=== PATIENT | female | born 1935 | race Caucasian/White ===

== ENCOUNTER 2018-01-18 09:50 | Day surgery (SDC) | payer OTHER, MEDICARE ==
[2018-01-17 11:48] VITALS: BMI 21.4
--- NOTE | 2018-01-17 16:55 | HP ---
- Patient Scheduled date of Surgery: 01/18/18 Scheduled Surgical Procedure: Phacoemulsification and cataract extraction with PCIOL Affected Eye: Left Chief Complaint (Indication for surgery): Decreased vision affecting ADLs - Ocular History Other Eye History: Other (none) Eye Medications: vigamox 0/3 Previous Eye Surgery: none - Medical History Illnesses: Other (RA) Current Medications: Ambulatory Orders Unobtainable 01/17/18 Methotrexate ibuprofen Allergies/Adverse Reactions: Allergies Allergy/AdvReac Type Severity Reaction Status Date / Time No Known Allergies Allergy Verified 01/17/18 11:48 Ocular Examination - Best Corrected Visual Acuity Distance: Right eye: 20/60 Distance: Left eye: 20/70 - External/Slit Lamp Examination Abnormalities: arcus senilis - Intraocular Pressure Intraocular Pressure - Right eye: 14 Intraocular Pressure-Left eye: 14 - Lens Lens: 3-4 + NS - Vitreous/Retina Vitreous/Retina: c:d 0.1 mottled macula, v wnl, p drusen ou - Special Examination M - Right eye: -1.00 -1.50 x 090 M - Left eye: plano -3.25 x 090 K - Right eye: 44.75/46.25 x 010 K - Left eye: 44.75/46 x 165 AL - Right eye: 22.56 AL - Left eye: 22.67 IOL bag: +21.5 d AUOOTO IOL sulcus: +20.5 MN60 AC IOL AC: +17.5 MTA 4uo - Impression Impression: Cataract Left Eye - Plan Plan: Phacoemulsification and cataract extraction - IOL Left eye Post-hospital care will be provided in office on: 01/19/18
[~2018-01-18 09:50] MED LIST: BSS (NA/CA/MG/K) BALANCED SALT SOLUTION OPHTH SOLN 15 ML BOTTLE OS ONE; CHONDROITIN SU A/HYALUR SOD 1 KIT IO ONE; EPINEPHrine/PF 1 MG/1 ML (1:1,000) AMPULE SQ ONE; LIDOCAINE HCL 1% PRESERVATIVE FREE - 30ML VIAL IO ONE; LIDOCAINE HCL 2% JELLY (5 ML/TUBE) TP ONE; POVIDONE-IODINE 5% OPHTHALMIC PREP 30 ML SOLUTION OS ONE; TOBRAMYCIN 0.3% OPHTH OINT 3.5 GM OS ONE
--- NOTE | 2018-01-18 09:52 | HP ---
History & Physical Update - History History: No Change - Physical Physical: No Change - Assessment Assessment: No Change - Plan Plan: No Change (H and p reviewed from 01/11/[address] Mckeon, no change)
[2018-01-18] MEDS: PHENYLEPHRINE 2.5% OPHTH SOLN 15 ML BOTTLE OP SCH ×3 (10:10→10:45)
[2018-01-18] MEDS: CIPROFLOXACIN HCL 0.3% OPHTH 2.5ML BOTTLE OP SCH ×3 (10:10→10:45)
[2018-01-18] MEDS: TROPICAMIDE 1% OPHTH SOLN 15 ML BOTTLE OP SCH ×3 (10:10→10:46)
[2018-01-18] MEDS ORDERED: PHENYLEPHRINE 2.5% OPHTH SOLN 15 ML BOTTLE ONE (10:15)
[2018-01-18] MEDS ORDERED: TROPICAMIDE 1% OPHTH SOLN 15 ML BOTTLE ONE (10:15)
[2018-01-18] MEDS ORDERED: CIPROFLOXACIN HCL 0.3% OPHTH 2.5ML BOTTLE ONE (10:15)
[2018-01-18] MEDS ORDERED: KETOROLAC TROMETHAMINE 0.5% EYE DROP 1 DROP DROPS ONE (10:15)
[2018-01-18 10:27] VITALS: TEMP 97.5
[2018-01-18] MEDS ORDERED: TOBRAMYCIN/DEXAMETHASONE OPHTH. OINTMENT 1 TUBE ONE (10:38)
[2018-01-18] MEDS: KETOROLAC TROMETHAMINE 0.5% EYE DROP 1 DROP DROPS OP SCH ×2 (10:40→10:45)
[2018-01-18] MEDS ORDERED: LIDOCAINE HCL 2% JELLY (5 ML/TUBE) TP ONE (11:00)
[2018-01-18] MEDS ORDERED: MIDAZOLAM HCL 2 MG/2 ML SINGLE DOSE VIAL ONE (11:00)
[2018-01-18] MEDS ORDERED: POVIDONE-IODINE 5% OPHTHALMIC PREP 30 ML SOLUTION OS ONE (11:07)
[2018-01-18] MEDS ORDERED: BSS (NA/CA/MG/K) BALANCED SALT SOLUTION OPHTH SOLN 15 ML BOTTLE OS ONE (11:11)
[2018-01-18] MEDS ORDERED: LIDOCAINE HCL 1% PRESERVATIVE FREE - 30ML VIAL IO ONE (11:16)
[2018-01-18] MEDS ORDERED: CHONDROITIN SU A/HYALUR SOD 1 KIT IO ONE ×2 (11:18→11:28)
[2018-01-18] MEDS ORDERED: EPINEPHrine/PF 1 MG/1 ML (1:1,000) AMPULE SQ ONE ×2 (11:19)
[2018-01-18] MEDS ORDERED: BSS (NA/CA/MG/K) BALANCED SALT SOLUTION OPHTH SOLN 15 ML BOTTLE IO ONE ×2 (11:29→11:53)
[2018-01-18] MEDS ORDERED: CHONDROITIN SU A/HYALUR SOD 1 KIT ONE (11:32)
[2018-01-18] MEDS ORDERED: ACETYLCHOLINE 1:100 INTRA-OCUL 20 MG/2 ML KIT ONE (11:55)
[2018-01-18] MEDS ORDERED: ACETYLCHOLINE 1:100 INTRA-OCUL 20 MG/2 ML KIT IO ONE (11:57)
[2018-01-18] MEDS ORDERED: TOBRAMYCIN 0.3% OPHTH OINT 3.5 GM OS ONE (12:04)
--- NOTE | 2018-01-18 12:13 | OP ---
Ophthalmology Operative Note Pre-Operative Diagnosis: Cataract Affected Eye: Left Operation: Phacoemulsification and cataract extraction with PCIOL (post op mature cataract) Findings: Mature cataract left eye Director Of Vocational Training: None Anesthesiologist: Nano Matamoros Anesthesia: Topical Specimens Removed: none Estimated blood loss: <1 cc Drains & Tubes with Location: none Operative Report Dictated: Yes
[2018-01-18 13:41] VITALS: BP 148/90; PULSE 82
--- NOTE | 2018-01-18 15:26 | OP ---
DATE OF OPERATION: 01/18/2018 PREOPERATIVE DIAGNOSIS: Cataract, left eye. POSTOPERATIVE DIAGNOSIS: Mature cataract, left eye. PROCEDURE: Phacoemulsification and cataract extraction with insertion of posterior chamber intraocular lens, left eye. SURGEON: Mayela Robledo MD RESEARCH ASSISTANT MEMBER: None. ANESTHESIA: Topical. ANESTHESIOLOGIST: Nano Matamoros MD OPERATIVE PROCEDURE: The patient received 2% lidocaine gel and then was gently sedated and prepped and draped in the usual sterile fashion so as to expose only the left eye. Ophthalmic Betadine was instilled into the inferior fornix. The lashes were taped out of the surgical field. An eyelid speculum was placed into the left eye. A paracentesis was made in inferior clear cornea at the limbus. Then 0.5 mL of non-preserved lidocaine 1% was injected into the anterior chamber. Viscoelastic material was instilled into the anterior chamber via the paracentesis. A 2.4-mm keratome was then used to make the main incision in temporal clear cornea at the limbus. A continuous curvilinear capsulorrhexis was performed using a cystotome and Utrata forceps. Hydrodissection of the lens cortex was performed using BSS on a cannula until the nucleus was freely rotating. The phacoemulsification tip was inserted via the main wound and used to sculpt 2 perpendicular grooves in the lens nucleus. Viscoat was injected into the groove. The nucleus cracker was used to crack the lens into 4 quadrants. Each quadrant was lifted out of the capsule into the iris plane and individually phacoemulsified. The remaining cortical material was then aspirated using the irrigation and aspiration port. The capsular bag was inflated using ProVisc and a preloaded AcrySof lens model [id number], power +21.5 diopters, was injected into the capsular bag. It was centered using a Sinskey hook. The residual viscoelastic material was removed from the anterior chamber using irrigation and aspiration. The wound edges were hydrated using BSS. However, the lens appeared to be shallowing, therefore, 1 mL of Miochol was placed in the eye to constrict the pupil, and the wound edges were again hydrated. The wound was tested for leakage. It was found to be watertight. TobraDex ointment was placed on the eye and the speculum was removed from the eye. A sterile dressing and shield were placed over the eye and the patient was transferred to the recovery room in stable condition, told to follow up in 1 day. MAYELA ROBLEDO M.D. [id number]
[2018-01-18] MEDS ORDERED: ACETAMINOPHEN 325 MG TABLET (FP) PO PRN (16:18)
== END 2018-01-18 13:15 | disposition home or self-care (01) ==
LOC: JASU-SURG 09:50
PROVIDERS: ATTEND Ophthalmology
PROC: 08RK3JZ Replacement of Left Lens with Synthetic Substitute, Percutaneous Approach (ICD-10-PCS; principal; 2018-01-18 11:00)
DX: H26.9 Unspecified cataract (principal)

== ENCOUNTER 2018-07-05 05:18 | Day surgery (SDC) | payer OTHER, MEDICARE ==
--- NOTE | 2018-07-04 15:28 | HP ---
- Patient Scheduled date of Surgery: 07/05/18 Scheduled Surgical Procedure: Phacoemulsification and cataract extraction with PCIOL Affected Eye: Right Chief Complaint (Indication for surgery): Decreased vision affecting ADLs - Ocular History Other Eye History: Other (none) Eye Medications: vigamox Previous Eye Surgery: s/p ce/pciol OS - Medical History Illnesses: Other (RA , osteoporosis) Current Medications: Ambulatory Orders Folic Acid 1 mg PO DAILY 01/18/18 Methotrexate [Mexate -] 12.5 mg PO Q7D 01/18/18 Infliximab [Remicade 100MG Vial] 100 mg IV MONTHLY 07/03/18 Allergies/Adverse Reactions: Allergies Allergy/AdvReac Type Severity Reaction Status Date / Time No Known Allergies Allergy Verified 07/03/18 16:32 Ocular Examination - Best Corrected Visual Acuity Distance: Right eye: 20/60 Distance: Left eye: 20/40 - External/Slit Lamp Examination Abnormalities: none - Intraocular Pressure Intraocular Pressure - Right eye: 14 Intraocular Pressure-Left eye: 14 - Lens Lens: 3-4 + NS - Vitreous/Retina Vitreous/Retina: c:d 0.1 m mottled, p drusen , v wnl - Special Examination M - Right eye: -1.00-1.50 x 090 M - Left eye: +0.50-2.00 x 075 K - Right eye: 44.50/45.75 x 005 K - Left eye: 44.50/46.25 x 161 AL - Right eye: 22.56 AL - Left eye: 22.67 IOL ba.0 IOL sulcus: 21.0 IOL AC: 18.5 - Impression Impression: Cataract Right Eye - Plan Plan: Phacoemulsification and cataract extraction - IOL Right eye Post-hospital care will be provided in office on: 07/06/18
[~2018-07-05 05:18] MED LIST changes: +ACETAMINOPHEN 325 MG TABLET (FP) PO PRN; -BSS (NA/CA/MG/K) BALANCED SALT SOLUTION OPHTH SOLN 15 ML BOTTLE OS ONE; -CHONDROITIN SU A/HYALUR SOD 1 KIT IO ONE; -EPINEPHrine/PF 1 MG/1 ML (1:1,000) AMPULE SQ ONE; -LIDOCAINE HCL 1% PRESERVATIVE FREE - 30ML VIAL IO ONE; -LIDOCAINE HCL 2% JELLY (5 ML/TUBE) TP ONE; +POVIDONE-IODINE 5% OPHTHALMIC PREP 30 ML SOLUTION OD ONE; -POVIDONE-IODINE 5% OPHTHALMIC PREP 30 ML SOLUTION OS ONE; +TETRACAINE 0.5% OPHTH SOLN 2 ML BOTTLE TP ONE; -TOBRAMYCIN 0.3% OPHTH OINT 3.5 GM OS ONE; +TOBRAMYCIN/DEXAMETHASONE OPHTH. OINTMENT 1 TUBE OD ONE
[2018-07-05] MEDS ORDERED: TROPICAMIDE 1% OPHTH SOLN 15 ML BOTTLE ONE (09:44)
[2018-07-05] MEDS ORDERED: CIPROFLOXACIN HCL 0.3% OPHTH 2.5ML BOTTLE ONE (09:44)
[2018-07-05] MEDS ORDERED: KETOROLAC TROMETHAMINE 0.5% EYE DROP 1 DROP DROPS ONE (09:46)
[2018-07-05] MEDS: KETOROLAC TROMETHAMINE 0.5% EYE DROP 1 DROP DROPS OP SCH ×2 (09:52→10:01)
[2018-07-05] MEDS: PHENYLEPHRINE 2.5% OPHTH SOLN 15 ML BOTTLE OP SCH ×2 (09:52→10:01)
[2018-07-05] MEDS: TROPICAMIDE 1% OPHTH SOLN 15 ML BOTTLE OP SCH ×2 (09:52→10:01)
[2018-07-05] MEDS: CIPROFLOXACIN HCL 0.3% OPHTH 2.5ML BOTTLE OP SCH ×2 (09:52→10:00)
[2018-07-05] MEDS ORDERED: MIDAZOLAM HCL 2 MG/2 ML SINGLE DOSE VIAL ONE (10:30)
--- NOTE | 2018-07-05 10:37 | HP ---
History & Physical Update - History History: No Change - Physical Physical: No Change - Assessment Assessment: No Change - Plan Plan: No Change (H and P from Dr. Amador reviewed from 06/13/18 no changes)
[2018-07-05] MEDS ORDERED: TOBRAMYCIN/DEXAMETHASONE OPHTH. OINTMENT 1 TUBE ONE (10:45)
[2018-07-05] MEDS ORDERED: LIDOCAINE HCL/PF 1% SDV 5ML VIAL ONE (10:45)
[2018-07-05] MEDS ORDERED: TETRACAINE 0.5% OPHTH SOLN 2 ML BOTTLE ONE (10:45)
[2018-07-05] MEDS ORDERED: POVIDONE-IODINE 5% OPHTHALMIC PREP 30 ML SOLUTION ONE (10:45)
[2018-07-05] MEDS ORDERED: EPINEPHrine/PF 1 MG/1 ML (1:1,000) AMPULE ONE (10:45)
[2018-07-05] MEDS ORDERED: TETRACAINE 0.5% OPHTH SOLN 2 ML BOTTLE TP ONE (10:50)
[2018-07-05] MEDS ORDERED: POVIDONE-IODINE 5% OPHTHALMIC PREP 30 ML SOLUTION OD ONE (11:00)
[2018-07-05] MEDS ORDERED: CHONDROITIN SU A/HYALUR SOD 1 KIT IO ONE (11:02)
[2018-07-05] MEDS ORDERED: EPINEPHrine/PF 1 MG/1 ML (1:1,000) AMPULE IV ONE (11:02)
[2018-07-05] MEDS ORDERED: CHONDROITIN SU A/HYALUR SOD 1 KIT ONE (11:08)
[2018-07-05] MEDS ORDERED: TOBRAMYCIN/DEXAMETHASONE OPHTH. OINTMENT 1 TUBE OD ONE (11:28)
--- NOTE | 2018-07-05 11:33 | OP ---
Ophthalmology Operative Note Pre-Operative Diagnosis: Cataract Affected Eye: Right Operation: Phacoemulsification and cataract extraction with PCIOL Findings: mature cataract right eye Anesthesia: Topical Specimens Removed: none Estimated blood loss: <1 cc Drains & Tubes with Location: none Operative Report Dictated: Yes
[2018-07-05 11:59] VITALS: TEMP 97.8
--- NOTE | 2018-07-05 12:11 | OP ---
DATE OF OPERATION: DATE OF DICTATION: 07/05/2018 PREOPERATIVE DIAGNOSIS: Nuclear sclerotic cataract right eye. POSTOPERATIVE DIAGNOSIS: Mature cataract right eye. PROCEDURE: Phacoemulsification and cataract extraction with insertion of posterior chamber intraocular lens, right eye. SURGEON: Mayela Robledo M.D. WATCH AND CLOCK REPAIR CLERK: None. ANESTHESIA: Topical. ANESTHESIOLOGIST: Ramon Meyers, Ref-SUPERVISOR DIAGNOSTIC OPERATIVE PROCEDURE: Following satisfactory intravenous sedation, the patient received tetracaine eye drops and was prepped and draped in the usual sterile fashion such as to expose only the right eye. Ophthalmic Betadine was instilled into the inferior fornix. The lashes were taped out of the surgical field. An eyelid speculum was placed into the right eye. A paracentesis was made in superior temporal clear cornea at the limbus; 0.5 mL of non-preserved lidocaine 1% was injected into the anterior chamber. Viscoelastic material was instilled into the anterior chamber via the paracentesis. A 2.4 mm keratome was then used to create the main incision in temporal clear cornea at the limbus. A continuous curvilinear capsulorrhexis was performed using a cystotome and Utrata forceps. Hydrodissection of the lens cortex was performed using BSS on a cannula until the nucleus was noted to be freely rotating. The phacoemulsification tip was then inserted via the main wound and used to sculpt 2 perpendicular grooves into the lens nucleus. The nucleus was cracked into 4 quadrants. Each quadrant was lifted out of the capsule into the iris plane and individually phacoemulsified. The remaining cortical material was then aspirated using the irrigation and aspiration port. The capsular bag was inflated using Provisc and a preloaded AcrySof lens model [id number], power +22.0 diopters, was injected into the capsular bag and centered using the Sinskey hook. The residual Viscoelastic material was removed from the anterior chamber using irrigation and aspiration. The wound edges were hydrated using BSS. The wound was tested for leakage. It was found to be slightly leaky therefore one 10-0 nylon suture was placed over the wound and buried. The wound was again checked. It was water tight. Tobradex ointment was placed in the eye. The speculum was removed from the eye and the eyelid was closed. A sterile dressing and shield were placed over the eye and the patient was transferred to the recovery room in stable condition and told to follow up in 1 day. MAYELA ROBLEDO M.D. [id number]
[2018-07-05 12:32] VITALS: BP 152/84; PULSE 62
== END 2018-07-05 12:32 | disposition home or self-care (01) ==
LOC: JASU-SURG 05:18
PROVIDERS: ATTEND Ophthalmology
PROC: 08RJ3JZ Replacement of Right Lens with Synthetic Substitute, Percutaneous Approach (ICD-10-PCS; principal; 2018-07-05 10:30)
DX: H25.091 Other age-related incipient cataract, right eye (principal)

== ENCOUNTER 2018-10-23 15:56 | Inpatient (IN) | payer OTHER, MEDICARE ==
--- NOTE | 2018-10-23 16:14 | PDOC ---
Rapid Medical Evaluation Time Seen by Provider: 10/23/18 16:08 Medical Evaluation: Allergies Allergy/AdvReac Type Severity Reaction Status Date / Time No Known Allergies Allergy Verified 07/03/18 16:32 10/23/18 16:09 Pt is an 83 y/o F who presents to the ER for pre-syncopal episodes. Recommended she come to the evaluation by Dr. Amador. She currently admits to headache and dizziness. Had one similar episode on Monday. States that the symptoms came back this morning and have not resolved. Also admits to some shortness of breath. Denies chest pain Exam: NAD, Lungs CTAB, BP 170/100 Orders: labs, ekg, cxr, IV Pt to proceed to the ER for further evaluation Discharge Disposition - Diagnosis Dizziness - Discharge Dispostion Condition at time of disposition: Stable - Referrals - Patient Instructions - Post Discharge Activity
[2018-10-23 17:13] LABS: BASO % 0.8 % (0-2.0); EOS % 4.7 % (0-4.5); HEMATOCRIT 37.2 % (32.4-45.2); HEMOGLOBIN 12.5 GM/dL (10.7-15.3); LYMPH % 42.1 % (8-40); MCH 33.2 pg (25.7-33.7); MCHC 33.6 g/dl (32.0-36.0); MEAN CELL VOLUME 98.9 fl (80-96); MEAN PLT VOLUME 8.7 fl (7.5-11.1); MONO % 17.1 % (3.8-10.2); NEUT % 35.3 % (42.8-82.8); PLATELET COUNT 181 K/MM3 (134-434); RBC 3.77 M/mm3 (3.60-5.2); RDW 14.6 % (11.6-15.6); WHITE BLOOD COUNT 5.1 K/mm3 (4.0-10.0)
[2018-10-23 17:23] LABS: INR 1.05 (0.83-1.09); PROTHROMBIN TIME (PATIENT) 12.4 SEC (9.7-13.0)
[2018-10-23 17:34] LABS: ALBUMIN 2.9 g/dl (3.4-5.0); ALK PHOS 59 U/L (45-117); ANION GAP 5 MMOL/L (8-16); BILIRUBIN,TOTAL 0.7 mg/dL (0.2-1); CALCIUM 8.1 mg/dL (8.5-10.1); CHLORIDE 106 mmol/L (98-107); CO2 29 mmol/L (21-32); CREATININE 0.6 mg/dL (0.55-1.3); GLUCOSE,RANDOM 87 mg/dL (74-106); POTASSIUM 4.4 mmol/L (3.5-5.1); SGOT/AST 21 U/L (15-37); SGPT/ALT 15 U/L (13-61); SODIUM 141 mmol/L (136-145); TOT PROT 7.9 g/dl (6.4-8.2)
--- NOTE | 2018-10-23 20:14 | PDOC ---
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 Vanegas with reported normal echos, does not remember stress test) presents to the ED for 3 episodes of rapid breathing with associated pre syncope. Pt states the first episode began 4 days ago while cooking in her kitchen when she noted rapid breathing and feelings of pre syncope which subsided within 10 min. Pt had 2 more episodes described as similar in nature and non exertional which also resolved within 10 min. Pt denies CP, palpitations, LOC, dizziness during episodes . Denies F/C/N/V, SOB, CP, abdominal pain, back pain, palpitations Past History - Past Medical History Allergies/Adverse Reactions: Allergies Allergy/AdvReac Type Severity Reaction Status Date / Time No Known Allergies Allergy Verified 07/03/18 16:32 Home Medications: Ambulatory Orders Folic Acid 1 mg PO DAILY 01/18/18 Methotrexate [Mexate -] 12.5 mg PO Q7D 01/18/18 Infliximab [Remicade Infusion -] 100 mg IV MONTHLY 07/03/18 Acetaminophen [Tylenol .Regular Strength -] 650 mg PO Q4H PRN tablet 10/25/18 Aspirin [ASA -] 81 mg PO DAILY tab.chew 10/25/18 Furosemide [Lasix -] 20 mg PO DAILY #30 tablet 10/25/18 Metoprolol Succinate [Toprol XL -] 25 mg PO DAILY #30 tab.sr.24h 10/25/18 Anemia: No Asthma: No Cancer: No Cardiac Disorders: No (enlarged heart) CVA: No COPD: No CHF: No Dementia: No Diabetes: No GI Disorders: No Disorders: No HTN: No Hypercholesterolemia: No Liver Disease: No Seizures: No Thyroid Disease: No - Immunization History Immunization Up to Date: No - Suicide/Smoking/Psychosocial Hx Smoking History: Never smoked Have you smoked in the past 12 months: No Information on smoking cessation initiated: No Hx Alcohol Use: No Drug/Substance Use Hx: No Substance Use Type: None Hx Substance Use Treatment: No Review of Systems - Review of Systems Constitutional: No: Chills, Fever Respiratory: Yes: Other (rapid breathing, resolved). No: Shortness of Breath, Wheezing Cardiac (ROS): No: Chest Pain, Edema, Palpitations, Syncope (presyncope) ABD/GI: No: Constipated, Diarrhea, Nausea, Vomiting, Abdominal cramping : No: Burning, Dysuria, Frequency, Flank Pain Musculoskeletal: No: Back Pain Neurological: Yes: Other (lightheadedness). No: Headache, Numbness, Tingling *Physical Exam - Vital Signs Last Vital Signs Temp Pulse Resp BP Pulse Ox 98.0 F 81 16 171/108 H 95 10/23/18 16:10 10/23/18 16:10 10/23/18 16:10 10/23/18 16:10 10/23/18 16:10 - Physical Exam General Appearance: Yes: Nourished, Appropriately Dressed. No: Apparent Distress HEENT: positive: EOMI, MAURICIO, Normal Voice, Hearing Grossly Normal Neck: positive: Supple. negative: Carotid bruit Respiratory/Chest: positive: Lungs Clear, Normal Breath Sounds. negative: Accessory Muscle Use, Crackles, Rales, Rhonchi, Wheezing Cardiovascular: positive: Regular Rhythm, Regular Rate, S1, S2. negative: Edema , JVD, Murmur Vascular Pulses: Dorsalis-Pedis (R): 4+, Doralis-Pedis (L): 4+ Gastrointestinal/Abdominal: positive: Flat, Soft. negative: Pulsatile Mass, Distended, Guarding, Rebound, Tenderness Extremity: positive: Normal Capillary Refill, Normal Inspection, Normal Range of Motion Integumentary: positive: Normal Color, Dry, Warm Neurologic: positive: fire protection equipment technician II-XII NML intact, Fully Oriented, Alert, Normal Mood/ Affect, Normal Response, Motor Strength 5/5. negative: Facial Droop, Sensory Deficit, Confused, Disoriented ED Treatment Course - LABORATORY CBC & Chemistry Diagram: 10/24/18 06:44 10/24/18 06:44 - ADDITIONAL ORDERS Additional order review: Laboratory Results 10/23/18 10/23/18 17:00 17:00 PT with INR 12.40 INR 1.05 Sodium 141 Potassium 4.4 Chloride 106 Carbon Dioxide 29 Anion Gap 5 L BUN 18.0 Creatinine 0.6 Est GFR (CKD-EPI)AfAm 96.33 Est GFR (CKD-EPI)NonAf 83.11 Random Glucose 87 Calcium 8.1 L Total Bilirubin 0.7 AST 21 ALT 15 Alkaline Phosphatase 59 Total Protein 7.9 Albumin 2.9 L 10/23/18 17:00 RBC 3.77 MCV 98.9 H MCHC 33.6 RDW 14.6 MPV 8.7 Neutrophils % 35.3 L D Lymphocytes % 42.1 H Monocytes % 17.1 H Eosinophils % 4.7 H Basophils % 0.8 Medical Decision Making - Medical Decision Making 83 yo female pmh of RA and 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 Vanegas with reported normal echos, does not remember stress test) presents to the ED for 3 episodes of rapid breathing with associated pre syncope. Pt states the first episode began 4 days ago while cooking in her kitchen when she noted rapid breathing and feelings of pre syncope which subsided within 10 min. Pt had 2 more episodes described as similar in nature and non exertional which also resolved within 10 min. Pt denies CP, palpitations, LOC, dizziness during episodes . Denies F/C/N/V, SOB, CP, abdominal pain, back pain, palpitations Vitals show elevated BP otherwise WNL DDX INLT: ACS, arrhythmia, PE, anemia, electrolyte ab, infection, dehydration Pt will likely be admitted for syncope workup including echo and holter monitor EKG NSR, no acute ST changes. No acute changes from last ekg showing RBBB Labs unremarkable UA neg for infection CXR neg for acute path Discussed case with hospitalist, pt accepted to tele unit *DC/Admit/Observation/Transfer Diagnosis at time of Disposition: Dizziness, Pre-syncope - Discharge Dispostion Disposition: HOME Condition at time of disposition: Stable Decision to Admit order: Yes - Referrals - Patient Instructions - Post Discharge Activity
[2018-10-23] MEDS ORDERED: ASPIRIN 81 MG CHEWABLE TABLETS PO ONE (20:56)
[2018-10-23] MEDS ORDERED: ASPIRIN 81 MG CHEWABLE TABLETS ONE (21:10)
--- NOTE | 2018-10-23 22:33 | PDOC ---
Documentation entered by Ernesto Gilman SCRIBE, acting as scribe for Sandy Carreon MD. Sandy Carreon MD: This documentation has been prepared by the Kalina purdy Elijah, SCRIBE, under my direction and personally reviewed by me in its entirety. I confirm that the documentation accurately reflects all work, treatment, procedures, and medical decision making performed by me. Attending Attestation - Resident Resident Name: Herberth Gabriel - ED Attending Attestation I have performed the following: I have examined & evaluated the patient, The case was reviewed & discussed with the resident, I agree w/resident's findings & plan, Exceptions are as noted - HPI HPI: 10/23/18 21:16 The patient is an 83 year old female with a significant past medical history of Cataracts, RA and Hole in heart (Has normal Echos) who presents to the ED s/p 3 episodes of sudden onset rapid breathing and presyncope. The patient reports that the first episode occurred x4 days prior while she was cooking. The patient then sat down and after 10 minutes her symptoms subsided and returned to baseline. Throughout the rest of her weekend the patient reports two more episode that occurred while the patient was at rest. Denies CP and Loss of Consciousness Allergies: ANAA PCP: Dr. Ortega Cardiologists: Dr. Vanegas Family History: Sister w/ Infarcts, Brother THOMAS - Physicial Exam PE: 10/23/18 22:27 alert ,conversant 83 yo female currently in no acute distress head ncat neck supple lungs cta b/l cvs [id number] abd nontender skin warm and dry extremities no pitting edema neuro axox3,motor strength 5/5 ,b/l psych appropriate - Medical Decision Making 10/23/18 22:31 reviewing her labs ,they are unremarkable neg troponin cbc no anemia chemistries normal electrolytes,normal lfts ekg is nsr and there are no changes since her last ekg pt admitted to telemetry
--- NOTE | 2018-10-23 22:59 | HP ---
CHIEF COMPLAINT: Headache, fainting PCP: DR Pierre HISTORY OF PRESENT ILLNESS: 83 year old with PMHX of Cataracts, RA, ? 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 Sent by PCP patient arrived to the ER today due to s/p 3 episode of sudden onset of rapid breathing and fainting like episode. Similar symptoms occurred 4 days prior while she was cooking, at that time patient rested and symptoms subsided. Throughout the week patient had two more episodes while patient was resting. Patient denies CP and LOC. Upon exam at this time denies sob/cp/N/V/ dizziness. ER course was notable for: (1)dizziness, pre-syncope (2) negative troponin, normal electrolytes (3) EKG: NSR Recent Travel: no PAST MEDICAL HISTORY: RA PAST SURGICAL HISTORY:no Social History: Smoking:no Alcohol:no Drugs: no Family History: sister with infarcts, Brother THOMAS Allergies No Known Allergies Allergy (Verified 07/03/18 16:32) HOME MEDICATIONS: Home Medications Medication Instructions Recorded Folic Acid 1 mg PO DAILY 01/18/18 Methotrexate [Mexate -] 12.5 mg PO Q7D 01/18/18 Infliximab [Remicade 100MG Vial] 100 mg IV MONTHLY 07/03/18 REVIEW OF SYSTEMS CONSTITUTIONAL: Absent: fever, chills, diaphoresis, generalized weakness, complain of headace HEENT: Absent: rhinorrhea, nasal congestion, throat pain, throat swelling, difficulty swallowing, mouth swelling, ear pain, eye pain, visual changes CARDIOVASCULAR: Absent: chest pain, syncope, palpitations, irregular heart rate , lightheadedness, peripheral edema RESPIRATORY: Absent: cough, shortness of breath, dyspnea with exertion, orthopnea, wheezing, stridor, hemoptysis GASTROINTESTINAL:Absent: abdominal pain, abdominal distension, nausea, vomiting , diarrhea, constipation, melena, hematochezia GENITOURINARY: Absent: dysuria, frequency, urgency, hesitancy, hematuria, flank pain, genital pain MUSCULOSKELETAL: Absent: myalgia, arthralgia, joint swelling, back pain, neck pain SKIN: Absent: rash, itching, pallor NEUROLOGIC: Absent: focal weakness or paresthesias, dizziness, unsteady gait, seizure, mental status changes, complain of headache, dizziness PSYCHIATRIC: Absent: anxiety, depression, suicidal or homicidal ideation, hallucinations. PHYSICAL EXAMINATION Vital Signs - 24 hr 10/23/18 10/23/18 16:10 20:41 Temperature 98.0 F Pulse Rate 81 Pulse Rate [ 74 Left Radial] Respiratory 16 20 Rate Blood Pressure 171/108 H Blood Pressure 172/95 H [Left Arm] O2 Sat by Pulse 95 98 Oximetry (%) GENERAL: Awake, alert, no acute distress. HEENT: NC/AT, EOMI, PERLLA. NECK: Normal range of motion, supple without lymphadenopathy, JVD, or masses. LUNGS: Breath sounds equal, clear to auscultation bilaterally. No wheezes, and no crackles HEART: Regular rate and rhythm, normal S1 and S2 without murmur ABDOMEN: Soft, nontender, not distended, normoactive bowel sounds, no guarding, no rebound, no masses. MUSCULOSKELETAL: Normal range of motion at all joints. No bony deformities or tenderness. No CVA tenderness. NEUROLOGICAL: Cranial nerves II-XII intact. Normal speech. Normal gait. PSYCHIATRIC: Cooperative. Good eye contact. Appropriate mood and affect. SKIN: Warm, dry, normal turgor, no rashes or lesions noted Laboratory Results - last 24 hr 10/23/18 10/23/18 10/23/18 17:00 17:00 17:00 WBC 5.1 RBC 3.77 Hgb 12.5 Hct 37.2 MCV 98.9 H MCH 33.2 D MCHC 33.6 RDW 14.6 Plt Count 181 MPV 8.7 Absolute Neuts (auto) 1.8 Neutrophils % 35.3 L D Lymphocytes % 42.1 H Monocytes % 17.1 H Eosinophils % 4.7 H Basophils % 0.8 Nucleated RBC % 0 PT with INR 12.40 INR 1.05 Sodium 141 Potassium 4.4 Chloride 106 Carbon Dioxide 29 Anion Gap 5 L BUN 18.0 Creatinine 0.6 Est GFR (CKD-EPI)AfAm 96.33 Est GFR (CKD-EPI)NonAf 83.11 Random Glucose 87 Calcium 8.1 L Total Bilirubin 0.7 AST 21 ALT 15 Alkaline Phosphatase 59 Creatine Kinase 92 Troponin I < 0.02 Total Protein 7.9 Albumin 2.9 L ASSESSMENT/PLAN: Pre-syncope, Dizziness ( admit to telemetry) - negative troponin - EKG: NSR - cxr: mild pulmonary venous congestion - labs: lytes, hgb stable - follow up urine culture - follow up cardiology Rheumatoid Arthritis - home medication - denies acute pain Problem List - Problem (1) Pre-syncope Assessment/Plan: Pre-syncope, Dizziness ( admit to telemetry) - negative troponin - EKG: NSR - cxr: mild pulmonary venous congestion - labs: lytes, hgb stable - follow up urine culture - follow up cardiology Code(s): R55 - SYNCOPE AND COLLAPSE (2) Dizziness Assessment/Plan: Pre-syncope, Dizziness ( admit to telemetry) - negative troponin - EKG: NSR - cxr: mild pulmonary venous congestion - labs: lytes, hgb stable - follow up urine culture - follow up cardiology Code(s): R42 - DIZZINESS AND GIDDINESS (3) Rheumatoid arthritis Assessment/Plan: Rheumatoid Arthritis - home medication - denies acute pain Code(s): M06.9 - RHEUMATOID ARTHRITIS, UNSPECIFIED Visit type - Emergency Visit Emergency Visit: Yes Care time: The patient presented to the Emergency Department on the above date and was hospitalized for further evaluation of their emergent condition. - New Patient This patient is new to me today: Yes Date on this admission: 10/23/18 - Critical Care Critical Care patient: No
[2018-10-24 00:52] LABS: PH,URINE 5.5 (5.0-8.0); URINE APPEARANCE CLEAR; URINE BILIRUBIN NEGATIVE (NEGATIVE); URINE COLOR YELLOW; URINE GLUCOSE (UA) NEGATIVE (NEGATIVE); URINE KETONE NEGATIVE (NEGATIVE); URINE LEUK ESTERASE NEGATIVE (NEGATIVE); URINE NITRITE NEGATIVE (NEGATIVE); URINE PROTEIN NEGATIVE (NEGATIVE); URINE UROBILINOGEN 0.2 mg/dL (0.2-1.0)
[2018-10-24 02:43] VITALS: BMI 21.9
[2018-10-24 08:25] LABS: ALBUMIN 2.5 g/dl (3.4-5.0); BILIRUBIN,TOTAL 0.8 mg/dL (0.2-1); BLOOD UREA NITROGEN 14.6 mg/dL (7-18); CREATININE 0.6 mg/dL (0.55-1.3); POTASSIUM 4.4 mmol/L (3.5-5.1); TOT PROT 6.8 g/dl (6.4-8.2)
--- NOTE | 2018-10-24 10:06 | CON.CARD ---
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 Vanegas 09/11/2018 presented to the ED for 3 episodes of rapid breathing with associated pre syncope. Pt states the first episode began 4 days ago while cooking in her kitchen when she noted rapid breathing and feelings of pre syncope which subsided within 10 min. Pt had 2 more episodes described as similar in nature and non exertional which also resolved within 10 min. Pt denies CP, palpitations, LOC, dizziness, SOB, CP, orthopnea, PND, change in exercise capacity or LE edema. - History Source History Provided By: Patient Limitations to Obtaining History: No Limitations - Past Medical History ...: No - Alcohol/Substance Use Hx Alcohol Use: No - Smoking History Smoking history: Never smoked Have you smoked in the past 12 months: No Home Medications - Allergies Allergies/Adverse Reactions: Allergies Allergy/AdvReac Type Severity Reaction Status Date / Time No Known Allergies Allergy Verified 07/03/18 16:32 - Home Medications Home Medications: Ambulatory Orders Folic Acid 1 mg PO DAILY 01/18/18 Methotrexate [Mexate -] 12.5 mg PO Q7D 01/18/18 Infliximab [Remicade 100MG Vial] 100 mg IV MONTHLY 07/03/18 Review of Systems - Review of Systems Neurological: reports: Dizziness Vital Signs: Vital Signs Temperature 98.4 F 10/24/18 05:00 Pulse Rate 72 10/24/18 05:00 Respiratory Rate 17 10/24/18 05:00 Blood Pressure 146/84 10/24/18 05:00 O2 Sat by Pulse Oximetry (%) 96 10/24/18 02:27 Constitutional: Yes: No Distress, Calm, Thin Neck: Yes: Supple Respiratory: Yes: Regular, CTA Bilaterally Gastrointestinal: Yes: Normal Bowel Sounds, Soft Cardiovascular: Yes: Regular Rate and Rhythm JVD: No Carotid Bruit: No Heart Sounds: Yes: S1, S2 Murmur: Yes: Systolic Murmur, Grade 2 Edema: Yes (Bilateral varicosities) Edema: LLE: Trace, RLE: Trace - Other Data Labs, Other Data: CBC, BMP 10/24/18 06:44 INR, PTT INR 1.05 (0.83-1.09) 10/23/18 17:00 Troponin, BNP 10/23/18 17:00 Troponin I < 0.02 Troponin, BNP 10/23/18 17:00 Troponin I < 0.02 NR @ 75 LAE, incomplete RBBB Ejection Fraction %: LVEF > or = 40 % Imaging - Results Chest X-ray: Report Reviewed (Mild congestion) Problem List - Problems (2) ASD (atrial septal defect) Code(s): Q21.1 - ATRIAL SEPTAL DEFECT (3) Hypertension Code(s): I10 - ESSENTIAL (PRIMARY) HYPERTENSION Qualifiers: Hypertension type: essential hypertension Qualified Code(s): I10 - Essential (primary) hypertension (4) 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 Code(s): I28.0 - ARTERIOVENOUS FISTULA OF PULMONARY VESSELS (5) Pre-syncope Code(s): R55 - SYNCOPE AND COLLAPSE (6) Rheumatoid arthritis Code(s): M06.9 - RHEUMATOID ARTHRITIS, UNSPECIFIED Qualifiers: Rheumatoid arthritis location: unspecified site Rheumatoid factor presence : unspecified presence Qualified Code(s): M06.9 - Rheumatoid arthritis, unspecified Assessment/Plan 03/05/2018 Normal LV systolic fxn LVEF 65-70%, grade 2 diastolic dysfunction with elevated filling pressure, mod LVH, mod LAE, severe KEVIN, mildly dilated thoracic aorta, mild MR, tethere TV with mod TR c/w Ebstein's anomaly, tr HI 1. Near syncope 2. Ebstein's anomaly with mod TR 3. ASD with L->R shunt 4. RBBB 5. Rheumatoid arthritis 6. HTN P:1. Telemetry/holter monitor to assess PAF/PAT, may benefit from prolonged arrhythmia monitoring if unrevealing for arrhythmias 2. Echocardiogram to asses Ebstein's anomaly, ASD with L->R shunt and RVSP 3. Remains on ASA 81 qd, add Toprol XL 25 qd 4. Thank you for consultative opportunity, patient to f/u with Dr. Vanegas as outpatient
[2018-10-24 10:15] LABS: BASO % 0.8 % (0-2.0); EOS % 4.6 % (0-4.5); HEMATOCRIT 37.9 % (32.4-45.2); HEMOGLOBIN 12.5 GM/dL (10.7-15.3); LYMPH % 34.9 % (8-40); MCH 32.3 pg (25.7-33.7); MCHC 32.9 g/dl (32.0-36.0); MEAN CELL VOLUME 98.3 fl (80-96); MEAN PLT VOLUME 9.9 fl (7.5-11.1); MONO % 18.8 % (3.8-10.2); NEUT % 40.9 % (42.8-82.8); PLATELET COUNT 153 K/MM3 (134-434); RDW 14.8 % (11.6-15.6); WHITE BLOOD COUNT 6.3 K/mm3 (4.0-10.0)
[2018-10-24 10:18] LABS: RBC 3.86 M/mm3 (3.60-5.2)
--- NOTE | 2018-10-24 10:33 | PN ---
Progress Note, Physician Chief Complaint: Dizziness History of Present Illness: NAD denies any SOB, dizziness, light headedness now - Objective Vital Signs: Vital Signs Temperature 98.4 F 10/24/18 05:00 Pulse Rate 72 10/24/18 05:00 Respiratory Rate 17 10/24/18 05:00 Blood Pressure 146/84 10/24/18 05:00 O2 Sat by Pulse Oximetry (%) 96 10/24/18 02:27 Constitutional: Yes: Well Nourished, No Distress, Calm Cardiovascular: Yes: Regular Rate and Rhythm, Murmur (Grade II/ Diastolic LSB) Respiratory: Yes: Regular, Rhonchi (diffuse) Gastrointestinal: Yes: Normal Bowel Sounds, Soft Genitourinary: Yes: WNL Musculoskeletal: Yes: WNL (self ambulatory) Extremities: Yes: WNL Edema: No Peripheral Pulses WNL: Yes Neurological: Yes: Alert, Oriented Psychiatric: Yes: Alert, Oriented Labs: CBC, BMP 10/24/18 06:44 10/24/18 06:44 INR, PTT INR 1.05 (0.83-1.09) 10/23/18 17:00 Problem List - Problems (1) Dizziness Assessment/Plan: -labs unremarkable -Cardiology consult -Tele monitoring -Echo Code(s): R42 - DIZZINESS AND GIDDINESS (2) Pre-syncope Assessment/Plan: -labs unremarkable -Cardiology consult -Tele monitoring -Echo Code(s): R55 - SYNCOPE AND COLLAPSE (3) Rheumatoid arthritis Code(s): M06.9 - RHEUMATOID ARTHRITIS, UNSPECIFIED Qualifiers: Rheumatoid arthritis location: unspecified site Rheumatoid factor presence : unspecified presence Qualified Code(s): M06.9 - Rheumatoid arthritis, unspecified (4) Hypertension Assessment/Plan: -Seen by Cardiology -Started on Metoprolol Succ 25 mg po daily -IV furosemide once for pulmonary congestion Code(s): I10 - ESSENTIAL (PRIMARY) HYPERTENSION Qualifiers: Hypertension type: essential hypertension Qualified Code(s): I10 - Essential (primary) hypertension Assessment/Plan see problem list
--- NOTE | 2018-10-24 10:43 | EKG ---
Test Reason : Blood Pressure : / mmHG Vent. Rate : 075 BPM Atrial Rate : 075 BPM P-R Int : 188 ms QRS Dur : 130 ms QT Int : 420 ms P-R-T Axes : 035 056 000 degrees QTc Int : 469 ms NORMAL SINUS RHYTHM POSSIBLE LEFT ATRIAL ENLARGEMENT NON-SPECIFIC INTRA-VENTRICULAR CONDUCTION BLOCK T WAVE ABNORMALITY, CONSIDER INFERIOR ISCHEMIA ABNORMAL ECG WHEN COMPARED WITH ECG OF 02-JUL-2018 14:16, T WAVE INVERSION NOW EVIDENT IN INFERIOR LEADS Confirmed by ROSA BRIGGS, JODI ([id number]) on 10/24/2018 10:42:44 AM Referred By: GEOFF ROBIN,[facility] Confirmed By:JODI LEE MD
[2018-10-24] MEDS ORDERED: FUROSEMIDE 40 MG/4 ML INJECTABLE VIAL IVPUSH SCH (11:47)
[2018-10-24] MEDS: ASPIRIN 81 MG CHEWABLE TABLETS PO SCH (12:51)
[2018-10-24] MEDS: metoPROLOL SUCCINATE 25 MG TAB.SR.24H (FP) PO SCH (12:51)
[2018-10-24] MEDS ORDERED: FUROSEMIDE 40 MG/4 ML INJECTABLE VIAL IVPUSH ONE (12:56)
--- NOTE | 2018-10-24 12:57 | EKG ---
Test Reason : Blood Pressure : / mmHG Vent. Rate : 069 BPM Atrial Rate : 069 BPM P-R Int : 176 ms QRS Dur : 134 ms QT Int : 462 ms P-R-T Axes : 016 039 002 degrees QTc Int : 495 ms NORMAL SINUS RHYTHM POSSIBLE LEFT ATRIAL ENLARGEMENT RIGHT BUNDLE BRANCH BLOCK LEFT VENTRICULAR HYPERTROPHY ABNORMAL ECG WHEN COMPARED WITH ECG OF 02-JUL-2018 14:16, INVERTED T WAVES HAVE REPLACED NONSPECIFIC T WAVE ABNORMALITY IN INFERIOR LEADS Confirmed by ROSA BRIGGS, JODI ([id number]) on 10/24/2018 12:57:19 PM Referred By: Confirmed By:JODI LEE MD
--- NOTE | 2018-10-24 13:07 | PN ---
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
[2018-10-24] MEDS ORDERED: ALBUTEROL SO4 0.083% IH SOL 2.5 MG/3 ML VIAL.NEB. NEB PRN (13:29)
[2018-10-24] MEDS ORDERED: ACETAMINOPHEN 325 MG TABLET (FP) PO PRN (13:29)
--- NOTE | 2018-10-24 14:31 | CONS ---
DATE OF CONSULTATION: 10/24/2018 REFERRING PHYSICIAN: Geneva Smith MD The patient is an 83-year-old white female with a past medical history of rheumatoid arthritis, Victor Manuel anomaly, history of cataracts, nonsmoker, admitted to [facility] on October 23 with complaint of 3 episodes of sudden onset of rapid breathing and presyncope. Patient apparently had 1st episode of occur approximately 4 days prior to admission when she was cooking and started developing lightheadedness and shortness of breath and palpitation. Denied any nausea, vomiting, or diaphoresis. It since has resolved, and then she had 2 more episodes that occurred while at rest. She presented to the emergency room with the above. On admission, she was evaluated. She was admitted to the telemetry unit for further monitoring. She was evaluated by Dr. Derek Suarez for cardiology consultation. He felt that the patient most likely had possible cardiac arrhythmia. The patient, as stated before, is a nonsmoker. There is no history of occupational exposure to chemicals or fumes. There is no history of COPD or asthma in the past. Past medical history, again, includes Victor Manuel anomaly, atrial septal defect with left to right shunt, right bundle-branch block, rheumatoid arthritis. REVIEW OF SYSTEMS: Currently no chest pain, no palpitations, no shortness of breath, no fever, no chills, no hemoptysis, no abdominal pain. No weight loss, no night sweats. Current medications prior to admission include methotrexate, flecainide, infliximab (Remicade), folic acid. Current medications include aspirin and Toprol. PHYSICAL EXAMINATION: General: The patient is an elderly white female, well developed, awake, alert, in no acute distress. Vital Signs: She afebrile. Blood pressure 156/94. Respiratory rate 18. O2 saturation 95% on room air. HEENT: Normocephalic, atraumatic. Neck: Supple. Heart: Regular, S1, S2. Chest: Clear. Abdomen: Soft. Bowel sounds positive. Extremities: No cyanosis or edema. Chest x-ray: No infiltrates and no effusions. CHEMISTRIES: BUN 14, creatinine 0.6. WBC 6.3, hemoglobin 12.5, hematocrit 37.9, with a platelet count of 153,000. IMPRESSION: 1. Near syncope, etiology to be determined. Cardiac arrhythmia. 2. Dyspnea, likely secondary to cardiac arrhythmia. 3. Atrial septal defect. 4. Victor Manuel anomaly. 5. Rheumatoid arthritis. PLAN: Continue O2 as needed. Cardiac monitoring. Continue current cardiac medications. JOBY BANGURA M.D. JARVIS/[id number]
--- NOTE | 2018-10-24 15:32 | ECHO ---
Name: KEMAR CARLI Exam:Adult Echocardiogram Study Date: 10/24/2018 02:37 PM Age: 83 yrs Reason For Study: EBSTEINS ANOMALY Height: 63 in Weight: 123 lb BSA: 1.6 m2 MMode/2D Measurements & Calculations IVSd: 0.81 cm Ao root diam: 3.3 cm LVIDd: 3.8 cm LA dimension: 2.7 cm LVIDs: 2.5 cm LVPWd: 0.94 cm EDV(Teich): 63.2 ml LVOT diam: 1.9 cm ESV(Teich): 21.3 ml RV S Devante: 7.9 cm/sec Doppler Measurements & Calculations MV E max devante: 85.4 cm/sec Ao V2 max: 171.6 cm/sec MV A max devante: 124.2 cm/sec Ao max P.8 mmHg MV E/A: 0.69 Ao V2 mean: 106.8 cm/sec Ao mean P.6 mmHg Ao V2 VTI: 28.6 cm MARGOT(I,D): 1.8 cm2 MARGOT(V,D): 1.7 cm2 LV V1 max P.1 mmHg SV(LVOT): 50.3 ml LV V1 mean P.6 mmHg LV V1 max: 101.4 cm/sec LV V1 mean: 74.7 cm/sec LV V1 VTI: 17.1 cm TR max devante: 190.0 cm/sec Med Peak E' Devante: 2.9 cm/sec TR max P.4 mmHg Med E/e': 29.1 Lat Peak E' Devante: 2.6 cm/sec Lat E/e': 32.7 Procedure A two-dimensional transthoracic echocardiogram with color flow and Doppler was performed. Left Ventricle The left ventricular size, thickness and function are normal. The left ventricular ejection fraction is normal. E/A reversal consistent with but not diagnostic of poor LV compliance. The left ventricular w all motion is normal. Right Ventricle The right ventricle is not well visualized. EBSTEIN ANOMALY PRESENT. Atria Normal left and right atrial size and function. Mitral Valve There is mild mitral valve thickening. There is no mitral valve stenosis. There is mild mitral regurg itation. Tricuspid Valve TV displaced apicaly within RV c/w EBSTEIN syndrome. There is no tricuspid stenosis. There is mild to moderate tricuspid regurgitation. Right ventricular systolic pressure is normal. Aortic Valve The aortic valve is normal in structure and function. No hemodynamically significant valvular aortic stenosis. No aortic regurgitation is present. Pulmonic Valve The pulmonic valve is not well visualized. Great Vessels The aortic root is normal size. Pericardium/Pleura There is no pericardial effusion. Interpretation Summary The left ventricular size, thickness and function are normal The left ventricular ejection fraction is normal. The right ventricle is not well visualized. TV displaced apicaly within RV c/w EBSTEIN syndrome. E/A reversal consistent with but not diagnostic of poor LV compliance The left ventricular wall motion is normal. There is mild to moderate tricuspid regurgitation. Right ventricular systolic pressure is normal. EBSTEIN ANOMALY PRESENT There is mild mitral regurgitation. MD Jose Maria Sykes 10/24/2018 03:31 PM
--- NOTE | 2018-10-25 07:00 | PN ---
Progress Note (short form) - Note Progress Note: Chief Complaint: Events noted, notes reviewed, denies any recurrent near syncope /dizziness, denies any chest pain or dyspnea History of Present Illness: Seen and examined on telemetry. Events noted, notes reviewed, denies any recurrent near syncope/dizziness, denies any chest pain or dyspnea - Current Medication List Acetaminophen (Tylenol -) 650 mg PO Q4H PRN PRN Reason: PAIN OR FEVER Albuterol Sulfate (Ventolin 0.083% Nebulizer Soln -) 1 amp NEB Q4H PRN PRN Reason: SHORT OF BREATH/WHEEZING Aspirin (Asa -) 81 mg PO DAILY [facility] Last Admin: 10/24/18 12:51 Dose: 81 mg Metoprolol Succinate (Toprol Xl -) 25 mg PO DAILY [facility] [place] Last Admin: 10/24/18 12:51 Dose: 25 mg Review of Systems Cardiovascular: As noted above Respiratory: denies Cough or Sputum Production Gastrointestinal: denies: Nausea, Vomiting, Diarrhea, Constipation or Abdominal Discomfort Musculoskeletal: Degenerate Joint Disease - Objective Vital Signs: Last Vital Signs Temp Pulse Resp BP Pulse Ox 98.0 F 89 18 137/88 98 10/25/18 06:17 10/25/18 06:17 10/25/18 06:17 10/25/18 06:17 10/24/18 20:40 Intake & Output 10/22/18 10/23/18 10/24/18 10/25/18 23:59 23:59 23:59 23:59 Intake Total 30 Balance 30 Weight 130 lb 123 lb 9 oz Constitutional: No Distress, Calm Neck: Supple Negative JVD No Bruit Respiratory: Clear to A&P Bilaterally Cardiovascular: S1 S2 Regular Rate Rhythm Gastrointestinal: Soft Benign Normal Bowel Sounds Ext: Negative Edema Labs: CBC, BMP 10/24/18 06:44 10/24/18 06:44 Hepatic Panel Total Bilirubin 0.8 mg/dL (0.2-1) 10/24/18 06:44 AST 15 U/L (15-37) 10/24/18 06:44 ALT 13 U/L (13-61) 10/24/18 06:44 Alkaline Phosphatase 51 U/L (45-117) 10/24/18 06:44 Albumin 2.5 g/dl (3.4-5.0) L 10/24/18 06:44 INR, PTT INR 1.05 (0.83-1.09) 10/23/18 17:00 ASSESSMENT: 1. Near syncope, no recurrence 2. Ebstein's anomaly with moderate TR 3. ASD with L- R shunt 4. HTN 5. CRBBB 6. Rheumatoid arthritis PLAN: 1. Recommend extended arrhythmia monitoring as outpatient 2. Continue Toprol XL 3. Continue ASA 4. Can be D/C home from the cardiovascular point of view and F/U in the office with Dr. Meri Vanegas/[phone] Binu Lama M.D.
--- NOTE | 2018-10-25 09:08 | PN ---
Progress Note, Physician History of Present Illness: pulmonary alert,comfortable,-resp distress,-cp - Current Medication List Current Medications: Active Medications Acetaminophen (Tylenol -) 650 mg PO Q4H PRN PRN Reason: PAIN OR FEVER Albuterol Sulfate (Ventolin 0.083% Nebulizer Soln -) 1 amp NEB Q4H PRN PRN Reason: SHORT OF BREATH/WHEEZING Aspirin (Asa -) 81 mg PO DAILY [facility] Last Admin: 10/24/18 12:51 Dose: 81 mg Metoprolol Succinate (Toprol Xl -) 25 mg PO DAILY [facility] [place] Last Admin: 10/24/18 12:51 Dose: 25 mg - Objective Vital Signs: Vital Signs Temperature 98.0 F 10/25/18 06:17 Pulse Rate 89 10/25/18 06:17 Respiratory Rate 18 10/25/18 06:17 Blood Pressure 137/88 10/25/18 06:17 O2 Sat by Pulse Oximetry (%) 98 10/24/18 20:40 Constitutional: Yes: Well Nourished, Calm Eyes: Yes: WNL HENT: Yes: WNL Neck: Yes: WNL Cardiovascular: Yes: Regular Rate and Rhythm, S1, S2 Respiratory: Yes: CTA Bilaterally Gastrointestinal: Yes: Normal Bowel Sounds, Soft Extremities: Yes: WNL Edema: No Labs: CBC, BMP Problem List - Problems (1) ASD (atrial septal defect) Code(s): Q21.1 - ATRIAL SEPTAL DEFECT (2) Dizziness Code(s): R42 - DIZZINESS AND GIDDINESS (4) Hypertension Code(s): I10 - ESSENTIAL (PRIMARY) HYPERTENSION Qualifiers: Hypertension type: essential hypertension Qualified Code(s): I10 - Essential (primary) hypertension (5) 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 Assessment/Plan IMP NEAR-SYNCOPE DYSPNEA improved CARDIAC ARRHYTHMIA ASD EBSTEINS ANOMALY RA L>R SHUNT PLAN O2 CARDIAC MONITORING CONTINUE CURRENT MEDS W/U PER CARDIOLOGY DR BANGURA Problem List - Problems (1) ASD (atrial septal defect) Code(s): Q21.1 - ATRIAL SEPTAL DEFECT (2) Dizziness Code(s): R42 - DIZZINESS AND GIDDINESS (4) Hypertension Code(s): I10 - ESSENTIAL (PRIMARY) HYPERTENSION Qualifiers: Hypertension type: essential hypertension Qualified Code(s): I10 - Essential (primary) hypertension (5) 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
[2018-10-25] MEDS: metoPROLOL SUCCINATE 25 MG TAB.SR.24H (FP) PO SCH (09:16)
[2018-10-25] MEDS: ASPIRIN 81 MG CHEWABLE TABLETS PO SCH (09:16)
--- NOTE | 2018-10-25 09:16 | PN ---
Progress Note, Physician Chief Complaint: Dizziness History of Present Illness: NAD denies any SOB, dizziness, light headedness now Echo done----> consistent with Ebstein anomaly Seen by cardiology - Current Medication List Current Medications: Active Medications Acetaminophen (Tylenol -) 650 mg PO Q4H PRN PRN Reason: PAIN OR FEVER Albuterol Sulfate (Ventolin 0.083% Nebulizer Soln -) 1 amp NEB Q4H PRN PRN Reason: SHORT OF BREATH/WHEEZING Aspirin (Asa -) 81 mg PO DAILY [facility] Last Admin: 10/24/18 12:51 Dose: 81 mg Metoprolol Succinate (Toprol Xl -) 25 mg PO DAILY [facility] Last Admin: 10/24/18 12:51 Dose: 25 mg - Objective Vital Signs: Vital Signs Temperature 98.0 F 10/25/18 06:17 Pulse Rate 89 10/25/18 06:17 Respiratory Rate 18 10/25/18 06:17 Blood Pressure 137/88 10/25/18 06:17 O2 Sat by Pulse Oximetry (%) 98 10/24/18 20:40 Constitutional: Yes: Well Nourished, No Distress, Calm Cardiovascular: Yes: Regular Rate and Rhythm, Murmur (Grade II/ diastolic) Respiratory: Yes: Regular Gastrointestinal: Yes: WNL Genitourinary: Yes: WNL Musculoskeletal: Yes: WNL Extremities: Yes: WNL Edema: No Peripheral Pulses WNL: Yes Neurological: Yes: Alert, Oriented Psychiatric: Yes: Alert, Oriented Labs: CBC, BMP 10/24/18 06:44 10/24/18 06:44 INR, PTT INR 1.05 (0.83-1.09) 10/23/18 17:00 Problem List - Problems (1) Dizziness Assessment/Plan: -labs unremarkable -Cardiology consult -Tele monitoring -Echo reviewed Code(s): R42 - DIZZINESS AND GIDDINESS (2) Pre-syncope Assessment/Plan: -labs unremarkable -Cardiology consult -Tele monitoring -Echo Code(s): R55 - SYNCOPE AND COLLAPSE (3) Rheumatoid arthritis Code(s): M06.9 - RHEUMATOID ARTHRITIS, UNSPECIFIED Qualifiers: Rheumatoid arthritis location: unspecified site Rheumatoid factor presence : unspecified presence Qualified Code(s): M06.9 - Rheumatoid arthritis, unspecified (4) Hypertension Assessment/Plan: -Seen by Cardiology -Started on Metoprolol Succ 25 mg po daily -furosemide 20 mg po daily- taper if needed Code(s): I10 - ESSENTIAL (PRIMARY) HYPERTENSION Qualifiers: Hypertension type: essential hypertension Qualified Code(s): I10 - Essential (primary) hypertension Assessment/Plan see problem list
[2018-10-25 09:54] VITALS: BP 133/86; PULSE 83; TEMP 98.4
[2018-10-25] MEDS ORDERED: FUROSEMIDE 20 MG TABLET (FP) PO SCH (10:00)
--- NOTE | 2018-10-26 15:48 | HOL ---
Hook-up date: 2018-10-24 15:15:00 Duration: 19:26:00 Test Indications: EBSTEIN'S ANOMALY AND ASD R/O PA Medications: 90994 QRS complexes * Ventricular ectopics which represent % of total QRS comp. 740 Supraventricular ectopics which represent <1 % of total QRS comp. * Paced QRS complexs which represent % of total QRS comp. * % of Time Classified as Noise VENTRICULAR ECTOPY * Isolated * Bigeminal Cycles * Couplets * Runs * Beats in Runs * Beats LONGEST at * BPM at :: -- * Beats FASTEST at * BPM at :: -- SUPRAVENTRICULAR ECTOPY 674 Isolated 23 Couplets 5 Runs 20 Beats in Runs 7 Beats LONGEST at 133 BPM at 16:32:41 2018-10-24 7 Beats FASTEST at 133 BPM at 16:32:41 2018-10-24 HEART RATES 54 MIN at 02:53:31 2018-10-25 72 AVG 104 MAX at 21:34:35 2018-10-24 LONGEST RR 1.536 secs at 05:41:06 2018-10-25 The underlying rhythm was normal sinus at an average rate of 72bpm. No ventricular ectopy was noted. There were rare premature atrial contractions and several short, self-limited runs of paroxysmal atrial tachycardia: the longest lasting 7 beats at a rate of 133bpm. There was no evidence of atrial fibrillation. No significant pauses. No diary entries were submitted. Confirmed by RENY BRIGGS, MINH ([id number]) on 10/26/2018 3:47:20 PM Referred By: BRADFORD ARNDT DR Overread By: MINH OGLESBY MD
== END 2018-10-25 11:15 | disposition home or self-care (01) | DRG 307 ==
LOC: JER 15:56 → JERBED 22:10 → J4W 10-24 02:13 → OBSVTOIN 10-25 09:16
PROVIDERS: ADMIT Family Medicine; ATTEND Family Medicine
DX: Q22.5 Ebstein's anomaly (principal); Q21.1 Atrial septal defect; R55 Syncope and collapse; I10 Essential (primary) hypertension; I45.10 Unspecified right bundle-branch block; M19.90 Unspecified osteoarthritis, unspecified site; R06.00 Dyspnea, unspecified; R09.89 Other specified symptoms and signs involving the circulatory and respiratory systems; M06.80 Other specified rheumatoid arthritis, unspecified site; R42 Dizziness and giddiness; I07.1 Rheumatic tricuspid insufficiency
CPT/HCPCS: 36415; 71046-TC-FY; 80053; 80061; 81003; 82550; 83721; 84436; 84443; 84479; 84484; 85025; 85610; 87086; 93005; 93010; 93225; 93226; 93306-TC; 99285-25; G0378

== ENCOUNTER 2021-03-26 20:05 | Inpatient (IN) | payer OTHER, MEDICARE ==
[2021-03-26 20:12] VITALS: BMI 21.2
[2021-03-26] MEDS ORDERED: FUROSEMIDE 40 MG/4 ML INJECTABLE VIAL IVPUSH ONE (21:36)
[2021-03-26] MEDS ORDERED: FUROSEMIDE 40 MG/4 ML INJECTABLE VIAL ONE (21:44)
[2021-03-26 21:55] LABS: BASO % 0.6 % (0-2.0); EOS % 5.2 % (0-4.5); HEMATOCRIT 29.7 % (32.4-45.2); HEMOGLOBIN 10.7 GM/dL (10.7-15.3); LYMPH % 31.7 % (8-40); MCHC 36.1 g/dl (32.0-36.0); MEAN CELL VOLUME 108.2 fl (80-96); MEAN PLT VOLUME 8.2 fl (7.5-11.1); MONO % 7.2 % (3.8-10.2); NEUT % 55.3 % (42.8-82.8); PLATELET COUNT 108 10^3/uL (134-434); RBC 2.74 M/mm3 (3.60-5.2); RDW 17.3 % (11.6-15.6); WHITE BLOOD COUNT 3.7 K/mm3 (4.0-10.0)
[2021-03-26 21:56] LABS: CALCIUM 7.9 mg/dL (8.5-10.1)
[2021-03-26 21:57] LABS: ALBUMIN 2.7 g/dl (3.4-5.0); BLOOD UREA NITROGEN 29.6 mg/dL (7-18)
[2021-03-26 22:00] LABS: CREATININE 1.3 mg/dL (0.55-1.3)
[2021-03-26 22:01] LABS: N-TERMINAL BNP 2205.2 pg/ml (5-450)
[2021-03-26 22:02] LABS: BILIRUBIN,TOTAL 0.6 mg/dL (0.2-1); TOT PROT 7.3 g/dl (6.4-8.2)
[2021-03-26 22:05] LABS: INR 1.13 (0.83-1.09); PROTHROMBIN TIME (PATIENT) 12.7 SEC (9.7-13.0)
[2021-03-26 22:07] LABS: ACTIVATED PTT 29.1 SECONDS (25.2-36.5)
[2021-03-26] MEDS ORDERED: FOLIC ACID 5 MG/1 ML SQ ONE (22:10)
[2021-03-26] MEDS ORDERED: HEPARIN NA (PORCINE) 5,000 UNITS/ML 1ML VIAL IVPUSH PRN ×2 (22:58)
[2021-03-26] MEDS ORDERED: HEPARIN INFUSION - 25,000 UNITS/500 ML INFUS.BAG IVPB SCH (23:00)
[2021-03-27 09:05] LABS: BASO % 1.1 % (0-2.0); EOS % 4.9 % (0-4.5); HEMATOCRIT 31.1 % (32.4-45.2); HEMOGLOBIN 10.8 GM/dL (10.7-15.3); LYMPH % 37.9 % (8-40); MCHC 34.8 g/dl (32.0-36.0); MEAN PLT VOLUME 8.1 fl (7.5-11.1); NEUT % 47.1 % (42.8-82.8); PLATELET COUNT 103 10^3/uL (134-434); RBC 2.85 M/mm3 (3.60-5.2); RDW 17.6 % (11.6-15.6); WHITE BLOOD COUNT 3.1 K/mm3 (4.0-10.0)
[2021-03-27 09:24] LABS: CALCIUM 8.2 mg/dL (8.5-10.1)
[2021-03-27 09:25] LABS: ALBUMIN 2.7 g/dl (3.4-5.0); BLOOD UREA NITROGEN 29.2 mg/dL (7-18); MAGNESIUM 2.2 mg/dL (1.8-2.4)
[2021-03-27 09:28] LABS: CREATININE 1.3 mg/dL (0.55-1.3)
[2021-03-27 09:30] LABS: BILIRUBIN,TOTAL 0.7 mg/dL (0.2-1); TOT PROT 7.4 g/dl (6.4-8.2)
[2021-03-27] MEDS ORDERED: FOLIC ACID 1 MG TABLET (FP) ONE (10:41)
[2021-03-27] MEDS ORDERED: HEPARIN NA (PORCINE) 5,000 UNITS/ML 1ML VIAL ONE ×2 (10:41→21:21)
[2021-03-27] MEDS ORDERED: FUROSEMIDE 40 MG/4 ML INJECTABLE VIAL ONE (10:42)
[2021-03-27] MEDS: HEPARIN NA (PORCINE) 5,000 UNITS/ML 1ML VIAL SQ SCH ×2 (10:42→22:03)
[2021-03-27] MEDS ORDERED: PT OWN MED DRAWER 7, Y5N ONE (10:42)
[2021-03-27] MEDS: FUROSEMIDE 40 MG/4 ML INJECTABLE VIAL IVPUSH SCH (10:42)
[2021-03-27] MEDS: FOLIC ACID 1 MG TABLET (FP) PO SCH (10:42)
[2021-03-27] MEDS ORDERED: metoPROLOL SUCCINATE 25 MG TAB.SR.24H (FP) PO SCH (15:00)
[2021-03-27] MEDS ORDERED: VALSARTAN 40 MG TABLET PO SCH (15:00)
[2021-03-27] MEDS ORDERED: VALSARTAN 80 MG TABLET ONE (16:08)
[2021-03-27] MEDS ORDERED: metoPROLOL SUCCINATE 25 MG TAB.SR.24H (FP) ONE (16:08)
[2021-03-27] MEDS: CYANOCOBALAMIN (VITAMIN B-12) 1000 MCG/1 ML VIAL IM SCH (16:27)
[2021-03-28] MEDS: CYANOCOBALAMIN (VITAMIN B-12) 1000 MCG/1 ML VIAL IM SCH (10:49)
[2021-03-28] MEDS: FUROSEMIDE 40 MG/4 ML INJECTABLE VIAL IVPUSH SCH (10:50)
[2021-03-28] MEDS: HEPARIN NA (PORCINE) 5,000 UNITS/ML 1ML VIAL SQ SCH ×2 (10:50→22:57)
[2021-03-28] MEDS: VALSARTAN 40 MG TABLET PO SCH ×2 (10:50→22:56)
[2021-03-28] MEDS: FOLIC ACID 1 MG TABLET (FP) PO SCH (10:50)
[2021-03-28] MEDS ORDERED: MELATONIN 5 MG TABLETS PO PRN (22:08)
[2021-03-29 07:14] LABS: BASO % 0.7 % (0-2.0); EOS % 7.9 % (0-4.5); HEMOGLOBIN 11.4 GM/dL (10.7-15.3); MCH 39.2 pg (25.7-33.7); MCHC 35.7 g/dl (32.0-36.0); MEAN CELL VOLUME 109.7 fl (80-96); MEAN PLT VOLUME 9.2 fl (7.5-11.1); MONO % 13.7 % (3.8-10.2); NEUT % 35.7 % (42.8-82.8); PLATELET COUNT 95 10^3/uL (134-434); RBC 2.92 M/mm3 (3.60-5.2); RDW 17.2 % (11.6-15.6)
[2021-03-29 08:11] LABS: CALCIUM 8.3 mg/dL (8.5-10.1)
[2021-03-29 08:12] LABS: ALBUMIN 2.6 g/dl (3.4-5.0); BLOOD UREA NITROGEN 30.9 mg/dL (7-18)
[2021-03-29 08:15] LABS: CREATININE 1.3 mg/dL (0.55-1.3)
[2021-03-29 08:16] LABS: BILIRUBIN,TOTAL 0.7 mg/dL (0.2-1); TOT PROT 7.4 g/dl (6.4-8.2)
[2021-03-29] MEDS ORDERED: PT OWN MED DRAWER 7, Y5N ONE (08:57)
[2021-03-29] MEDS: VALSARTAN 40 MG TABLET PO SCH (09:30)
[2021-03-29] MEDS: FOLIC ACID 1 MG TABLET (FP) PO SCH (09:30)
[2021-03-29] MEDS: CYANOCOBALAMIN (VITAMIN B-12) 1000 MCG/1 ML VIAL IM SCH (09:32)
[2021-03-29] MEDS ORDERED: FUROSEMIDE 40 MG TABLET (FP) PO SCH (10:00)
[2021-03-29 13:18] LABS: BASO % 0.7 % (0-2.0); EOS % 5.8 % (0-4.5); HEMATOCRIT 33.4 % (32.4-45.2); HEMOGLOBIN 11.5 GM/dL (10.7-15.3); LYMPH % 35.1 % (8-40); MCH 36.5 pg (25.7-33.7); MCHC 34.4 g/dl (32.0-36.0); MEAN CELL VOLUME 106.1 fl (80-96); MEAN PLT VOLUME 9.1 fl (7.5-11.1); MONO % 13.8 % (3.8-10.2); NEUT % 44.6 % (42.8-82.8); PLATELET COUNT 107 10^3/uL (134-434); RBC 3.15 M/mm3 (3.60-5.2); RDW 17.5 % (11.6-15.6); WHITE BLOOD COUNT 3.7 K/mm3 (4.0-10.0)
[2021-03-29 15:58] VITALS: BP 105/71; PULSE 70; TEMP 98.3
== END 2021-03-29 18:24 | disposition home or self-care (01) | DRG 291 ==
LOC: JER 20:05 → JERBED 22:53 → J4W 03-27 22:46
PROVIDERS: ADMIT Internal Medicine; ATTEND Family Medicine
DX: I13.0 Hypertensive heart and chronic kidney disease with heart failure and stage 1 through stage 4 chronic kidney disease, or unspecified chronic kidney disease (principal); I50.33 Acute on chronic diastolic (congestive) heart failure; Q22.5 Ebstein's anomaly; Q21.1 Atrial septal defect; D61.818 Other pancytopenia; I31.3 Pericardial effusion (noninflammatory); N18.9 Chronic kidney disease, unspecified; M06.9 Rheumatoid arthritis, unspecified; I25.119 Atherosclerotic heart disease of native coronary artery with unspecified angina pectoris; F03.90 Unspecified dementia, unspecified severity, without behavioral disturbance, psychotic disturbance, mood disturbance, and anxiety; I27.20 Pulmonary hypertension, unspecified; I45.10 Unspecified right bundle-branch block
CPT/HCPCS: 36415; 71045-TC-FY; 80053; 83735; 83880; 84484; 85025; 85379; 85610; 85730; 93005; 93010; 93970-TC; 97116-GP; 97161-GP; 99285-25; C9803; J1644; U0003; U0005

== ENCOUNTER 2021-04-02 19:44 | Inpatient (IN) | payer OTHER, MEDICARE ==
[2021-04-02 21:57] LABS: BASO % 1.2 % (0-2.0); EOS % 1.9 % (0-4.5); HEMATOCRIT 32.4 % (32.4-45.2); HEMOGLOBIN 11.4 GM/dL (10.7-15.3); LYMPH % 21.3 % (8-40); MCH 37.8 pg (25.7-33.7); MCHC 35.1 g/dl (32.0-36.0); MEAN CELL VOLUME 107.7 fl (80-96); MONO % 18.3 % (3.8-10.2); NEUT % 57.3 % (42.8-82.8); PLATELET COUNT 194 10^3/uL (134-434); RBC 3.01 M/mm3 (3.60-5.2); RDW 16.9 % (11.6-15.6)
[2021-04-02 22:12] LABS: CHLORIDE 102 mmol/L (98-107); SODIUM 140 mmol/L (136-145)
[2021-04-02 22:14] LABS: CALCIUM 8.3 mg/dL (8.5-10.1)
[2021-04-02 22:15] LABS: ALBUMIN 2.7 g/dl (3.4-5.0); ANION GAP 6 MMOL/L (8-16); BLOOD UREA NITROGEN 31.9 mg/dL (7-18); CO2 32 mmol/L (21-32); GLUCOSE,RANDOM 98 mg/dL (74-106); MAGNESIUM 2.1 mg/dL (1.8-2.4)
[2021-04-02 22:18] LABS: CREATININE 1.2 mg/dL (0.55-1.3); SGOT/AST 20 U/L (15-37)
[2021-04-02 22:20] LABS: ALK PHOS 50 U/L (45-117); BILIRUBIN,TOTAL 0.6 mg/dL (0.2-1); TOT PROT 7.7 g/dl (6.4-8.2)
[2021-04-02 22:23] LABS: N-TERMINAL BNP 2958.5 pg/ml (5-450)
[2021-04-02 22:30] LABS: SGPT/ALT 16 U/L (13-61)
[2021-04-02 23:05] LABS: ANISOCYTOSIS 0; MACROCYTOSIS 2+
[2021-04-03 01:21] LABS: EPI CELLS 4 /uL (0-25.1); HYALINE CASTS 1 /uL (0-3.1); PH,URINE 5.5 (5.0-8.0); URINE APPEARANCE CLEAR; URINE BACTERIA 5 /uL (0-1359); URINE BILIRUBIN NEGATIVE (NEGATIVE); URINE COLOR YELLOW; URINE GLUCOSE (UA) NEGATIVE (NEGATIVE); URINE KETONE NEGATIVE (NEGATIVE); URINE LEUK ESTERASE NEGATIVE (NEGATIVE); URINE NITRITE NEGATIVE (NEGATIVE); URINE PROTEIN 1+ (NEGATIVE); URINE RBC 7 /uL (0-23.9); URINE UROBILINOGEN 0.2 mg/dL (0.2-1.0); URINE WBC 3 /uL (0-25.8)
[2021-04-03] MEDS: HEPARIN NA (PORCINE) 5,000 UNITS/ML 1ML VIAL SQ SCH ×3 (05:38→22:16)
[2021-04-03] MEDS: FOLIC ACID 1 MG TABLET (FP) PO SCH (10:56)
[2021-04-03] MEDS: VALSARTAN 80 MG TABLET PO SCH ×2 (10:57→22:16)
[2021-04-03] MEDS: FUROSEMIDE 40 MG TABLET (FP) PO SCH (11:18)
[2021-04-04] MEDS: HEPARIN NA (PORCINE) 5,000 UNITS/ML 1ML VIAL SQ SCH ×3 (05:19→22:03)
[2021-04-04 08:24] LABS: HEMATOCRIT 32.9 % (32.4-45.2); HEMOGLOBIN 11.7 GM/dL (10.7-15.3); MCH 39.2 pg (25.7-33.7); MCHC 35.8 g/dl (32.0-36.0); MEAN CELL VOLUME 109.5 fl (80-96); MEAN PLT VOLUME 9.8 fl (7.5-11.1); PLATELET COUNT 214 10^3/uL (134-434); RDW 17.3 % (11.6-15.6); WHITE BLOOD COUNT 4.9 K/mm3 (4.0-10.0)
[2021-04-04 08:51] LABS: CALCIUM 7.6 mg/dL (8.5-10.1)
[2021-04-04 08:52] LABS: BLOOD UREA NITROGEN 25.2 mg/dL (7-18)
[2021-04-04 08:55] LABS: CREATININE 1.2 mg/dL (0.55-1.3)
[2021-04-04] MEDS: VALSARTAN 80 MG TABLET PO SCH ×2 (09:23→22:03)
[2021-04-04] MEDS: FUROSEMIDE 40 MG TABLET (FP) PO SCH (09:23)
[2021-04-04] MEDS: FOLIC ACID 1 MG TABLET (FP) PO SCH (09:24)
[2021-04-04 10:21] VITALS: BMI 19.3
[2021-04-04 11:09] LABS: ANISOCYTOSIS 2+; MACROCYTOSIS 2+; PLATELET ESTIMATE NORMAL
[2021-04-05] MEDS: HEPARIN NA (PORCINE) 5,000 UNITS/ML 1ML VIAL SQ SCH ×3 (06:04→21:38)
[2021-04-05] MEDS: FOLIC ACID 1 MG TABLET (FP) PO SCH (11:22)
[2021-04-05] MEDS: VALSARTAN 80 MG TABLET PO SCH (11:22)
[2021-04-05] MEDS: FUROSEMIDE 40 MG TABLET (FP) PO SCH (11:23)
[2021-04-06] MEDS: HEPARIN NA (PORCINE) 5,000 UNITS/ML 1ML VIAL SQ SCH ×2 (06:21→13:49)
[2021-04-06] MEDS: FUROSEMIDE 40 MG TABLET (FP) PO SCH (09:01)
[2021-04-06] MEDS: FOLIC ACID 1 MG TABLET (FP) PO SCH (09:02)
[2021-04-06] MEDS ORDERED: VALSARTAN 80 MG TABLET PO SCH (10:00)
[2021-04-06 16:10] VITALS: BP 100/54; PULSE 88; TEMP 98.1
== END 2021-04-06 17:19 | disposition home health service (06) | DRG 291 ==
LOC: JER 19:44 → JERBED 23:21 → J7W 04-03 03:24
PROVIDERS: ATTEND Family Medicine
DX: I13.0 Hypertensive heart and chronic kidney disease with heart failure and stage 1 through stage 4 chronic kidney disease, or unspecified chronic kidney disease (principal); I50.33 Acute on chronic diastolic (congestive) heart failure; Q22.5 Ebstein's anomaly; G93.41 Metabolic encephalopathy; D61.818 Other pancytopenia; Z68.1 Body mass index [BMI] 19.9 or less, adult; I27.20 Pulmonary hypertension, unspecified; I50.9 Heart failure, unspecified; N18.9 Chronic kidney disease, unspecified; M06.9 Rheumatoid arthritis, unspecified; I36.1 Nonrheumatic tricuspid (valve) insufficiency; F03.90 Unspecified dementia, unspecified severity, without behavioral disturbance, psychotic disturbance, mood disturbance, and anxiety; R62.7 Adult failure to thrive
CPT/HCPCS: 36415; 70450-TC; 71045-TC-FY; 80048; 80053; 81003; 82962; 83735; 83880; 84484; 85025; 87086; 93005; 93010; 97116-GP; 97161-GP; 99285-25; C9803; J1644; U0003; U0005

== ENCOUNTER 2021-04-08 16:20 | Inpatient (IN) | payer OTHER, MEDICARE ==
[2021-04-08] MEDS ORDERED: SODIUM CHLORIDE 0.9% 500 ML INFUS.BAG IV ONE (17:46)
[2021-04-08 17:50] LABS: HEMATOCRIT 35.3 % (32.4-45.2); HEMOGLOBIN 12.1 GM/dL (10.7-15.3); MCHC 34.2 g/dl (32.0-36.0); MEAN CELL VOLUME 108.1 fl (80-96); MEAN PLT VOLUME 9.4 fl (7.5-11.1); PLATELET COUNT 308 10^3/uL (134-434); RBC 3.27 M/mm3 (3.60-5.2); RDW 16.3 % (11.6-15.6); WHITE BLOOD COUNT 6.5 K/mm3 (4.0-10.0)
[2021-04-08 17:58] LABS: URINE APPEARANCE CLEAR; URINE BILIRUBIN NEGATIVE (NEGATIVE); URINE COLOR YELLOW; URINE GLUCOSE (UA) NEGATIVE (NEGATIVE); URINE KETONE NEGATIVE (NEGATIVE); URINE LEUK ESTERASE NEGATIVE (NEGATIVE); URINE NITRITE NEGATIVE (NEGATIVE); URINE PROTEIN NEGATIVE (NEGATIVE); URINE UROBILINOGEN 0.2 mg/dL (0.2-1.0)
[2021-04-08 17:59] LABS: INR 0.98 (0.83-1.09); PROTHROMBIN TIME (PATIENT) 11.5 SEC (9.7-13.0)
[2021-04-08 18:02] LABS: ACTIVATED PTT 35.2 SECONDS (25.2-36.5)
[2021-04-08 18:05] LABS: CHLORIDE 97 mmol/L (98-107); SODIUM 135 mmol/L (136-145)
[2021-04-08 18:07] LABS: CALCIUM 8.4 mg/dL (8.5-10.1)
[2021-04-08 18:08] LABS: ALBUMIN 2.6 g/dl (3.4-5.0); ANION GAP 6 MMOL/L (8-16); BLOOD UREA NITROGEN 43.7 mg/dL (7-18); CO2 32 mmol/L (21-32); GLUCOSE,RANDOM 78 mg/dL (74-106); MAGNESIUM 2.3 mg/dL (1.8-2.4)
[2021-04-08 18:11] LABS: CREATININE 1.6 mg/dL (0.55-1.3); SGOT/AST 27 U/L (15-37); SGPT/ALT 23 U/L (13-61)
[2021-04-08 18:12] LABS: BILIRUBIN,TOTAL 0.4 mg/dL (0.2-1); TOT PROT 7.7 g/dl (6.4-8.2)
[2021-04-08 18:14] LABS: ALK PHOS 65 U/L (45-117)
[2021-04-08 18:16] LABS: N-TERMINAL BNP 1676.1 pg/ml (5-450)
[2021-04-08 19:01] LABS: ANISOCYTOSIS 2+; MACROCYTOSIS 1+; PLATELET ESTIMATE NORMAL
[2021-04-08] MEDS ORDERED: POLYETHYLENE GLYCOL (HEALTHYLAX) 3350 17 GM PACKET PO PRN (19:50)
[2021-04-09] MEDS ORDERED: HEPARIN NA (PORCINE) 5,000 UNITS/ML 1ML VIAL ONE ×2 (07:09→17:40)
[2021-04-09] MEDS: HEPARIN NA (PORCINE) 5,000 UNITS/ML 1ML VIAL SQ SCH ×3 (07:45→17:51)
[2021-04-09] MEDS ORDERED: FOLIC ACID 1 MG TABLET (FP) ONE (09:30)
[2021-04-09] MEDS ORDERED: MIRTAZAPINE 15 MG TABLET (FP) ONE (09:32)
[2021-04-09] MEDS: FOLIC ACID 1 MG TABLET (FP) PO SCH (09:53)
[2021-04-09] MEDS: MIRTAZAPINE 15 MG TABLET (FP) PO SCH (09:53)
[2021-04-09 18:15] LABS: CALCIUM 8.3 mg/dL (8.5-10.1)
[2021-04-09 18:19] LABS: CREATININE 1.5 mg/dL (0.55-1.3)
[2021-04-10 09:13] LABS: ALBUMIN 2.2 g/dl (3.4-5.0); BLOOD UREA NITROGEN 39.1 mg/dL (7-18); CALCIUM 8.3 mg/dL (8.5-10.1); MAGNESIUM 2.2 mg/dL (1.8-2.4)
[2021-04-10 09:16] LABS: CREATININE 1.5 mg/dL (0.55-1.3); URIC ACID 7.2 mg/dL (2.6-7.2)
[2021-04-10 09:18] LABS: BILIRUBIN,TOTAL 0.5 mg/dL (0.2-1); TOT PROT 7.1 g/dl (6.4-8.2)
[2021-04-10] MEDS ORDERED: FOLIC ACID 1 MG TABLET (FP) ONE ×2 (10:12→11:54)
[2021-04-10] MEDS ORDERED: MIRTAZAPINE 15 MG TABLET (FP) ONE (10:12)
[2021-04-10] MEDS ORDERED: SODIUM ZIRCONIUM CYCLOSILICATE (LOKELMA) 5 GM PACKET PO SCH (10:15)
[2021-04-10 10:21] LABS: HEMATOCRIT 36.9 % (32.4-45.2); HEMOGLOBIN 12.3 GM/dL (10.7-15.3); MCH 34.8 pg (25.7-33.7); MCHC 33.2 g/dl (32.0-36.0); MEAN CELL VOLUME 104.7 fl (80-96); RBC 3.53 M/mm3 (3.60-5.2); RDW 16.4 % (11.6-15.6)
[2021-04-10 10:23] LABS: WHITE BLOOD COUNT 10.2 K/mm3 (4.0-10.0)
[2021-04-10] MEDS: FOLIC ACID 1 MG TABLET (FP) PO SCH (11:00)
[2021-04-10] MEDS: MIRTAZAPINE 15 MG TABLET (FP) PO SCH (11:00)
[2021-04-10 11:11] LABS: PHOSPHOROUS 4.2 mg/dL (2.5-4.9)
[2021-04-10 11:38] LABS: ANISOCYTOSIS 1+; MACROCYTOSIS 1+; PLATELET ESTIMATE DECREASED
[2021-04-10 11:39] LABS: MEAN PLT VOLUME 10.7 fl (7.5-11.1)
[2021-04-10] MEDS: SODIUM ZIRCONIUM CYCLOSILICATE (LOKELMA) 5 GM PACKET PO SCH (12:45)
[2021-04-10] MEDS ORDERED: SODIUM CHLORIDE 0.9% 500 ML INFUS.BAG IV ONE (12:59)
[2021-04-10] MEDS ORDERED: SODIUM ZIRCONIUM CYCLOSILICATE (LOKELMA) 5 GM PACKET ONE (13:01)
[2021-04-10] MEDS: HEPARIN NA (PORCINE) 5,000 UNITS/ML 1ML VIAL SQ SCH (22:45)
[2021-04-11] MEDS: HEPARIN NA (PORCINE) 5,000 UNITS/ML 1ML VIAL SQ SCH ×5 (07:09→21:29)
[2021-04-11 08:26] LABS: CALCIUM 8.6 mg/dL (8.5-10.1)
[2021-04-11 08:27] LABS: ALBUMIN 2.6 g/dl (3.4-5.0)
[2021-04-11 08:30] LABS: CREATININE 1.5 mg/dL (0.55-1.3)
[2021-04-11 08:32] LABS: BILIRUBIN,TOTAL 0.6 mg/dL (0.2-1); TOT PROT 7.8 g/dl (6.4-8.2)
[2021-04-11] MEDS ORDERED: ONDANSETRON 4 MG/2 ML VIAL IVPUSH PRN (08:58)
[2021-04-11] MEDS ORDERED: PT OWN MED DRAWER 7, Y5N ONE (09:12)
[2021-04-11] MEDS: ACETAMINOPHEN 325 MG TABLET (FP) PO PRN ×2 (09:22→21:38)
[2021-04-11] MEDS: FOLIC ACID 1 MG TABLET (FP) PO SCH (09:23)
[2021-04-11] MEDS: SODIUM ZIRCONIUM CYCLOSILICATE (LOKELMA) 5 GM PACKET PO SCH (09:23)
[2021-04-11 09:44] LABS: HEMATOCRIT 38.8 % (32.4-45.2); MCH 35.1 pg (25.7-33.7); MCHC 33.6 g/dl (32.0-36.0); MEAN CELL VOLUME 104.4 fl (80-96); RBC 3.71 M/mm3 (3.60-5.2); WHITE BLOOD COUNT 13.5 K/mm3 (4.0-10.0)
[2021-04-11 11:38] LABS: ANISOCYTOSIS 1+; MACROCYTOSIS 0; PLATELET ESTIMATE DECREASED
[2021-04-11] MEDS: metoPROLOL SUCCINATE 25 MG TAB.SR.24H (FP) PO SCH (11:49)
[2021-04-12] MEDS: HEPARIN NA (PORCINE) 5,000 UNITS/ML 1ML VIAL SQ SCH ×3 (06:14→22:18)
[2021-04-12 07:46] LABS: CALCIUM 8.7 mg/dL (8.5-10.1)
[2021-04-12 07:47] LABS: ALBUMIN 2.6 g/dl (3.4-5.0); BLOOD UREA NITROGEN 48.8 mg/dL (7-18)
[2021-04-12 07:52] LABS: BILIRUBIN,TOTAL 0.8 mg/dL (0.2-1); TOT PROT 8.1 g/dl (6.4-8.2)
[2021-04-12 08:07] LABS: CREATININE 1.8 mg/dL (0.55-1.3)
[2021-04-12] MEDS ORDERED: PT OWN MED DRAWER 7, Y5N ONE (08:54)
[2021-04-12] MEDS: metoPROLOL SUCCINATE 25 MG TAB.SR.24H (FP) PO SCH (09:12)
[2021-04-12] MEDS: FOLIC ACID 1 MG TABLET (FP) PO SCH (09:13)
[2021-04-12] MEDS: SODIUM ZIRCONIUM CYCLOSILICATE (LOKELMA) 5 GM PACKET PO SCH (09:13)
[2021-04-12 11:15] LABS: CALCIUM 8.4 mg/dL (8.5-10.1)
[2021-04-12 11:16] LABS: ALBUMIN 2.2 g/dl (3.4-5.0)
[2021-04-12 11:19] LABS: CREATININE 1.8 mg/dL (0.55-1.3)
[2021-04-12 11:21] LABS: TOT PROT 7.6 g/dl (6.4-8.2)
[2021-04-12 11:56] LABS: BASO % 1.9 % (0-2.0); HEMATOCRIT 38.5 % (32.4-45.2); HEMOGLOBIN 12.5 GM/dL (10.7-15.3); LYMPH % 5.2 % (8-40); MCH 34.2 pg (25.7-33.7); MCHC 32.5 g/dl (32.0-36.0); MEAN CELL VOLUME 105.3 fl (80-96); MONO % 13.4 % (3.8-10.2); NEUT % 79.5 % (42.8-82.8); RBC 3.65 M/mm3 (3.60-5.2); RDW 16.2 % (11.6-15.6); WHITE BLOOD COUNT 28.6 K/mm3 (4.0-10.0)
[2021-04-12 15:08] LABS: ANISOCYTOSIS 2+; MACROCYTOSIS 2+; PLATELET ESTIMATE DECREASED
[2021-04-12] MEDS: ACETAMINOPHEN 325 MG TABLET (FP) PO PRN (20:12)
[2021-04-12] MEDS ORDERED: VANCOMYCIN 1 GRAM (PRE-DOCKED) 1,000 MG/250 ML BAG IVPB ONE (21:14)
[2021-04-13] MEDS: HEPARIN NA (PORCINE) 5,000 UNITS/ML 1ML VIAL SQ SCH ×3 (06:03→21:20)
[2021-04-13 09:45] LABS: HEMATOCRIT 33.4 % (32.4-45.2); MCH 39.8 pg (25.7-33.7); MCHC 35.9 g/dl (32.0-36.0); MEAN PLT VOLUME 11.6 fl (7.5-11.1); PLATELET COUNT 172 10^3/uL (134-434); RBC 3.01 M/mm3 (3.60-5.2); WHITE BLOOD COUNT 29.8 K/mm3 (4.0-10.0)
[2021-04-13 09:47] LABS: BLOOD UREA NITROGEN 58.8 mg/dL (7-18); CALCIUM 8.3 mg/dL (8.5-10.1)
[2021-04-13 09:51] LABS: BILIRUBIN,TOTAL 0.8 mg/dL (0.2-1)
[2021-04-13] MEDS ORDERED: PT OWN MED DRAWER 7, Y5N ONE (10:21)
[2021-04-13] MEDS: metoPROLOL SUCCINATE 25 MG TAB.SR.24H (FP) PO SCH (10:59)
[2021-04-13] MEDS: SODIUM ZIRCONIUM CYCLOSILICATE (LOKELMA) 10 GM PACKET PO SCH (10:59)
[2021-04-13] MEDS: MULTIVITAMINS THER W-MINERALS COMBO TABLET (FP) PO SCH (10:59)
[2021-04-13] MEDS: FOLIC ACID 1 MG TABLET (FP) PO SCH (10:59)
[2021-04-13 11:23] LABS: ANISOCYTOSIS 1+; MACROCYTOSIS 0; PLATELET ESTIMATE NORMAL
[2021-04-13] MEDS ORDERED: PIPERACILLIN/TAZOBACTAM 2.25 GM VIAL IVPB ONE ×2 (13:29→16:56)
[2021-04-13] MEDS ORDERED: DEXTROSE 5%-WATER - 50 ML IVPB ONE ×2 (13:29→16:56)
[2021-04-13] MEDS: PIPERACILLIN/TAZOB 2.25 GM 2.25 GM in DEXTROSE 5%-WATER - 50 ML IVPB SCH ×2 (13:45→18:10)
[2021-04-13] MEDS: VANCOMYCIN 1 GRAM (PRE-DOCKED) 1,000 MG/250 ML BAG IVPB SCH (16:39)
[2021-04-13 20:23] LABS: EPI CELLS 2+ /uL (0-25.1); HYALINE CASTS FEW /uL (0-3.1); URINE APPEARANCE TURBID; URINE BACTERIA 2+ /uL (0-1359); URINE RBC 40-50 /uL (0-23.9); URINE WBC 60-70 /uL (0-25.8)
[2021-04-13 20:25] LABS: URINE CRYSTALS MANY /hpf
[2021-04-13 20:26] LABS: URINE COLOR BROWN
[2021-04-14] MEDS ORDERED: PIPERACILLIN/TAZOBACTAM 2.25 GM VIAL IVPB ONE ×3 (01:19→17:13)
[2021-04-14] MEDS ORDERED: DEXTROSE 5%-WATER - 50 ML IVPB ONE ×3 (01:19→17:13)
[2021-04-14] MEDS: PIPERACILLIN/TAZOB 2.25 GM 2.25 GM in DEXTROSE 5%-WATER - 50 ML IVPB SCH ×3 (01:27→17:41)
[2021-04-14] MEDS: HEPARIN NA (PORCINE) 5,000 UNITS/ML 1ML VIAL SQ SCH ×3 (07:08→21:43)
[2021-04-14 07:34] LABS: HEMATOCRIT 34.2 % (32.4-45.2); HEMOGLOBIN 11.7 GM/dL (10.7-15.3); MCH 36.9 pg (25.7-33.7); MCHC 34.2 g/dl (32.0-36.0); MEAN CELL VOLUME 108.1 fl (80-96); MEAN PLT VOLUME 11.4 fl (7.5-11.1); PLATELET COUNT 149 10^3/uL (134-434); RBC 3.16 M/mm3 (3.60-5.2); RDW 15.2 % (11.6-15.6)
[2021-04-14 07:58] LABS: CALCIUM 8.1 mg/dL (8.5-10.1)
[2021-04-14 07:59] LABS: ALBUMIN 1.7 g/dl (3.4-5.0); BLOOD UREA NITROGEN 73.3 mg/dL (7-18); MAGNESIUM 2.5 mg/dL (1.8-2.4)
[2021-04-14 08:02] LABS: CREATININE 2.2 mg/dL (0.55-1.3)
[2021-04-14 08:03] LABS: BILIRUBIN,TOTAL 0.9 mg/dL (0.2-1)
[2021-04-14 08:04] LABS: TOT PROT 6.6 g/dl (6.4-8.2)
[2021-04-14 08:46] LABS: ANISOCYTOSIS 1+; MACROCYTOSIS 0; PLATELET ESTIMATE DECREASED
[2021-04-14] MEDS ORDERED: PT OWN MED DRAWER 7, Y5N ONE (09:08)
[2021-04-14] MEDS: SODIUM ZIRCONIUM CYCLOSILICATE (LOKELMA) 10 GM PACKET PO SCH ×2 (09:44→09:45)
[2021-04-14] MEDS: metoPROLOL SUCCINATE 25 MG TAB.SR.24H (FP) PO SCH (09:44)
[2021-04-14] MEDS: FOLIC ACID 1 MG TABLET (FP) PO SCH (09:45)
[2021-04-14] MEDS: MULTIVITAMINS THER W-MINERALS COMBO TABLET (FP) PO SCH (09:45)
[2021-04-14 10:55] LABS: PHOSPHOROUS 3.8 mg/dL (2.5-4.9)
[2021-04-14] MEDS ORDERED: SODIUM CHLORIDE 0.45% 1,000 ML IV SCH (11:30)
[2021-04-14 12:51] LABS: INR 1.01 (0.83-1.09); PROTHROMBIN TIME (PATIENT) 11.8 SEC (9.7-13.0)
[2021-04-14] MEDS: VANCOMYCIN 1 GRAM (PRE-DOCKED) 1,000 MG/250 ML BAG IVPB SCH (13:16)
[2021-04-15] MEDS ORDERED: PIPERACILLIN/TAZOBACTAM 2.25 GM VIAL IVPB ONE ×3 (01:54→17:14)
[2021-04-15] MEDS ORDERED: DEXTROSE 5%-WATER - 50 ML IVPB ONE ×3 (01:55→17:14)
[2021-04-15] MEDS: PIPERACILLIN/TAZOB 2.25 GM 2.25 GM in DEXTROSE 5%-WATER - 50 ML IVPB SCH ×3 (02:12→17:31)
[2021-04-15] MEDS: HEPARIN NA (PORCINE) 5,000 UNITS/ML 1ML VIAL SQ SCH ×3 (06:31→21:15)
[2021-04-15] MEDS ORDERED: ONDANSETRON 4 MG/2 ML VIAL IVPUSH PRN ×3 (07:17→09:29)
[2021-04-15] MEDS ORDERED: PROMETHAZINE HCL 25 MG/1 ML VIAL IVPUSH PRN ×2 (07:17→09:29)
[2021-04-15] MEDS ORDERED: PROPOFOL 20 ML ONE ×2 (07:24)
[2021-04-15] MEDS ORDERED: DEXAMETHASONE SOD PHOSPHATE 4 MG/1 ML VIAL ONE (07:25)
[2021-04-15] MEDS ORDERED: ETOMIDATE 20 MG/10 ML AMPUL IVPUSH ONE (07:25)
[2021-04-15] MEDS ORDERED: LIDOCAINE HCL/PF 2% SDV 5ML VIAL ONE (07:25)
[2021-04-15] MEDS ORDERED: SODIUM CHLORIDE 1,000 ML IV SCH (07:30)
[2021-04-15] MEDS ORDERED: GENTAMICIN SO4 80 MG/2 ML VIAL ONE (07:46)
[2021-04-15] MEDS ORDERED: GENTAMICIN 80MG PREMIX BAG IVPB ONE (07:50)
[2021-04-15] MEDS ORDERED: GLYCOPYRROLATE 0.2 MG/1 ML VIAL ONE (07:59)
[2021-04-15 08:10] LABS: ALBUMIN 1.7 g/dl (3.4-5.0); BLOOD UREA NITROGEN 79.3 mg/dL (7-18); CALCIUM 8.2 mg/dL (8.5-10.1); MAGNESIUM 2.8 mg/dL (1.8-2.4)
[2021-04-15 08:13] LABS: CREATININE 2.3 mg/dL (0.55-1.3)
[2021-04-15 08:15] LABS: BILIRUBIN,TOTAL 0.8 mg/dL (0.2-1); TOT PROT 6.6 g/dl (6.4-8.2)
[2021-04-15] MEDS ORDERED: IOHEXOL 300 MG/ML INFUS..BTL IJ ONE (08:22)
[2021-04-15 08:31] LABS: BASO % 0.1 % (0-2.0); EOS % 0.2 % (0-4.5); HEMATOCRIT 34.1 % (32.4-45.2); HEMOGLOBIN 11.5 GM/dL (10.7-15.3); LYMPH % 7.2 % (8-40); MCH 36.3 pg (25.7-33.7); MCHC 33.8 g/dl (32.0-36.0); MEAN CELL VOLUME 107.4 fl (80-96); MEAN PLT VOLUME 11.4 fl (7.5-11.1); MONO % 11.5 % (3.8-10.2); PLATELET COUNT 133 10^3/uL (134-434); RBC 3.18 M/mm3 (3.60-5.2); RDW 15.5 % (11.6-15.6); WHITE BLOOD COUNT 19.1 K/mm3 (4.0-10.0)
[2021-04-15] MEDS ORDERED: SODIUM CHLORIDE 0.45% 1,000 ML IV SCH (09:29)
[2021-04-15] MEDS ORDERED: POLYETHYLENE GLYCOL (HEALTHYLAX) 3350 17 GM PACKET PO PRN (09:29)
[2021-04-15] MEDS ORDERED: SODIUM ZIRCONIUM CYCLOSILICATE (LOKELMA) 10 GM PACKET PO SCH (10:00)
[2021-04-15] MEDS: MULTIVITAMINS THER W-MINERALS COMBO TABLET (FP) PO SCH (11:16)
[2021-04-15] MEDS: metoPROLOL SUCCINATE 25 MG TAB.SR.24H (FP) PO SCH (11:16)
[2021-04-15] MEDS: FOLIC ACID 1 MG TABLET (FP) PO SCH (11:16)
[2021-04-15 11:59] VITALS: BMI 18.2
[2021-04-15] MEDS: VANCOMYCIN 1 GRAM (PRE-DOCKED) 1,000 MG/250 ML BAG IVPB SCH (13:07)
[2021-04-15] MEDS: SODIUM CHLORIDE 1,000 ML IV SCH (13:07)
[2021-04-16] MEDS ORDERED: DEXTROSE 5%-WATER - 50 ML IVPB ONE ×3 (01:10→18:03)
[2021-04-16] MEDS ORDERED: PIPERACILLIN/TAZOBACTAM 2.25 GM VIAL IVPB ONE ×3 (01:10→18:02)
[2021-04-16] MEDS: PIPERACILLIN/TAZOB 2.25 GM 2.25 GM in DEXTROSE 5%-WATER - 50 ML IVPB SCH ×3 (01:28→18:31)
[2021-04-16] MEDS: HEPARIN NA (PORCINE) 5,000 UNITS/ML 1ML VIAL SQ SCH ×3 (05:54→22:25)
[2021-04-16 07:54] LABS: BASO % 0.2 % (0-2.0); HEMATOCRIT 36.4 % (32.4-45.2); HEMOGLOBIN 11.9 GM/dL (10.7-15.3); MCH 35.5 pg (25.7-33.7); MCHC 32.7 g/dl (32.0-36.0); MEAN CELL VOLUME 108.6 fl (80-96); MEAN PLT VOLUME 11.4 fl (7.5-11.1); MONO % 7.2 % (3.8-10.2); NEUT % 87.6 % (42.8-82.8); PLATELET COUNT 138 10^3/uL (134-434); RBC 3.36 M/mm3 (3.60-5.2); RDW 15.4 % (11.6-15.6); WHITE BLOOD COUNT 19.7 K/mm3 (4.0-10.0)
[2021-04-16 09:10] LABS: ALBUMIN 1.5 g/dl (3.4-5.0); BILIRUBIN,TOTAL 0.5 mg/dL (0.2-1); BLOOD UREA NITROGEN 90.7 mg/dL (7-18); CALCIUM 7.9 mg/dL (8.5-10.1); CREATININE 2.5 mg/dL (0.55-1.3); MAGNESIUM 2.7 mg/dL (1.8-2.4); TOT PROT 6.3 g/dl (6.4-8.2)
[2021-04-16] MEDS: SODIUM CHLORIDE 1,000 ML IV SCH ×3 (10:49→13:26)
[2021-04-16] MEDS: MULTIVITAMINS THER W-MINERALS COMBO TABLET (FP) PO SCH (10:50)
[2021-04-16] MEDS: FOLIC ACID 1 MG TABLET (FP) PO SCH (10:51)
[2021-04-16] MEDS: metoPROLOL SUCCINATE 25 MG TAB.SR.24H (FP) PO SCH (10:54)
[2021-04-16 10:55] LABS: ANISOCYTOSIS 2+; MACROCYTOSIS 2+; OVALOCYTE 1+; PLATELET ESTIMATE DECREASED
[2021-04-16 11:07] LABS: PHOSPHOROUS 5.4 mg/dL (2.5-4.9)
[2021-04-16] MEDS: VANCOMYCIN 1 GRAM (PRE-DOCKED) 1,000 MG/250 ML BAG IVPB SCH (13:26)
[2021-04-16] MEDS ORDERED: SODIUM ZIRCONIUM CYCLOSILICATE (LOKELMA) 5 GM PACKET PO SCH (14:00)
[2021-04-17] MEDS: HEPARIN NA (PORCINE) 5,000 UNITS/ML 1ML VIAL SQ SCH ×3 (05:40→21:19)
[2021-04-17 08:26] LABS: BASO % 0.3 % (0-2.0); EOS % 0.2 % (0-4.5); HEMATOCRIT 34.1 % (32.4-45.2); HEMOGLOBIN 11.7 GM/dL (10.7-15.3); LYMPH % 6.6 % (8-40); MCHC 34.3 g/dl (32.0-36.0); MEAN CELL VOLUME 110.9 fl (80-96); MEAN PLT VOLUME 12.2 fl (7.5-11.1); MONO % 11.7 % (3.8-10.2); NEUT % 81.2 % (42.8-82.8); PLATELET COUNT 138 10^3/uL (134-434); RBC 3.07 M/mm3 (3.60-5.2); RDW 15.3 % (11.6-15.6); WHITE BLOOD COUNT 19.6 K/mm3 (4.0-10.0)
[2021-04-17 08:44] LABS: ALBUMIN 1.4 g/dl (3.4-5.0); CALCIUM 7.8 mg/dL (8.5-10.1); MAGNESIUM 2.6 mg/dL (1.8-2.4)
[2021-04-17 08:48] LABS: CREATININE 2.2 mg/dL (0.55-1.3)
[2021-04-17 08:49] LABS: BILIRUBIN,TOTAL 0.5 mg/dL (0.2-1); TOT PROT 6.2 g/dl (6.4-8.2)
[2021-04-17] MEDS ORDERED: DEXTROSE 5%-WATER 100 ML IVPB ONE (10:02)
[2021-04-17] MEDS: metoPROLOL SUCCINATE 25 MG TAB.SR.24H (FP) PO SCH (10:12)
[2021-04-17] MEDS: CEFTRIAXONE 2 GM in DEXTROSE 5%-WATER 2 GM/100 ML BAG IVPB SCH (10:12)
[2021-04-17] MEDS: MULTIVITAMINS THER W-MINERALS COMBO TABLET (FP) PO SCH (10:12)
[2021-04-17] MEDS: FOLIC ACID 1 MG TABLET (FP) PO SCH (10:12)
[2021-04-17] MEDS: SODIUM CHLORIDE 1,000 ML IV SCH (10:17)
[2021-04-17] MEDS ORDERED: PT OWN MED DRAWER 7, Y5N ONE (18:56)
[2021-04-18] MEDS: SODIUM CHLORIDE 1,000 ML IV SCH ×3 (00:27→12:00)
[2021-04-18] MEDS: HEPARIN NA (PORCINE) 5,000 UNITS/ML 1ML VIAL SQ SCH ×4 (05:36→22:22)
[2021-04-18 07:57] LABS: BASO % 0.3 % (0-2.0); EOS % 0.9 % (0-4.5); HEMATOCRIT 33.4 % (32.4-45.2); HEMOGLOBIN 11.3 GM/dL (10.7-15.3); MCH 37.1 pg (25.7-33.7); MCHC 33.8 g/dl (32.0-36.0); MEAN CELL VOLUME 109.7 fl (80-96); MEAN PLT VOLUME 11.7 fl (7.5-11.1); MONO % 12.8 % (3.8-10.2); PLATELET COUNT 132 10^3/uL (134-434); RBC 3.04 M/mm3 (3.60-5.2); RDW 14.9 % (11.6-15.6); WHITE BLOOD COUNT 15.2 K/mm3 (4.0-10.0)
[2021-04-18 08:25] LABS: BLOOD UREA NITROGEN 78.8 mg/dL (7-18)
[2021-04-18 08:26] LABS: CALCIUM 7.7 mg/dL (8.5-10.1)
[2021-04-18 08:31] LABS: ALBUMIN 1.3 g/dl (3.4-5.0)
[2021-04-18 08:34] LABS: CREATININE 1.7 mg/dL (0.55-1.3)
[2021-04-18 08:35] LABS: TOT PROT 5.9 g/dl (6.4-8.2)
[2021-04-18 08:36] LABS: BILIRUBIN,TOTAL 0.4 mg/dL (0.2-1)
[2021-04-18] MEDS ORDERED: DEXTROSE 5%-WATER 100 ML IVPB ONE (10:55)
[2021-04-18] MEDS: CEFTRIAXONE 2 GM in DEXTROSE 5%-WATER 2 GM/100 ML BAG IVPB SCH (11:13)
[2021-04-18] MEDS: FOLIC ACID 1 MG TABLET (FP) PO SCH (11:14)
[2021-04-18] MEDS: MULTIVITAMINS THER W-MINERALS COMBO TABLET (FP) PO SCH (11:14)
[2021-04-18] MEDS: metoPROLOL SUCCINATE 25 MG TAB.SR.24H (FP) PO SCH (11:14)
[2021-04-19] MEDS: HEPARIN NA (PORCINE) 5,000 UNITS/ML 1ML VIAL SQ SCH ×3 (05:53→21:09)
[2021-04-19 08:30] LABS: BASO % 0.2 % (0-2.0); HEMATOCRIT 34.5 % (32.4-45.2); LYMPH % 11.5 % (8-40); MCH 39.8 pg (25.7-33.7); MCHC 34.7 g/dl (32.0-36.0); MEAN CELL VOLUME 114.5 fl (80-96); MEAN PLT VOLUME 11.5 fl (7.5-11.1); MONO % 12.7 % (3.8-10.2); NEUT % 74.6 % (42.8-82.8); PLATELET COUNT 136 10^3/uL (134-434); RBC 3.01 M/mm3 (3.60-5.2); RDW 15.6 % (11.6-15.6); WHITE BLOOD COUNT 11.3 K/mm3 (4.0-10.0)
[2021-04-19] MEDS ORDERED: DEXTROSE 5%-WATER 100 ML IVPB ONE (08:45)
[2021-04-19 08:50] LABS: ALBUMIN 1.5 g/dl (3.4-5.0); BLOOD UREA NITROGEN 65.2 mg/dL (7-18)
[2021-04-19 08:53] LABS: CREATININE 1.5 mg/dL (0.55-1.3)
[2021-04-19 08:54] LABS: BILIRUBIN,TOTAL 0.6 mg/dL (0.2-1); TOT PROT 6.6 g/dl (6.4-8.2)
[2021-04-19] MEDS: LACTOBACILLUS ACIDOPHILUS 1 TABLET PO SCH (09:42)
[2021-04-19] MEDS: metoPROLOL SUCCINATE 25 MG TAB.SR.24H (FP) PO SCH (09:42)
[2021-04-19] MEDS: CEFTRIAXONE 2 GM in DEXTROSE 5%-WATER 2 GM/100 ML BAG IVPB SCH (09:43)
[2021-04-19] MEDS: FOLIC ACID 1 MG TABLET (FP) PO SCH (09:43)
[2021-04-19] MEDS: MULTIVITAMINS THER W-MINERALS COMBO TABLET (FP) PO SCH (09:44)
[2021-04-19] MEDS: SODIUM CHLORIDE 1,000 ML IV SCH ×2 (09:44→11:55)
[2021-04-19] MEDS ORDERED: SODIUM CHLORIDE 1,000 ML IV SCH (12:41)
[2021-04-19] MEDS: MIRTAZAPINE 15 MG TABLET (FP) PO SCH (21:09)
[2021-04-20] MEDS ORDERED: METOPROLOL TARTRATE 25 MG TABLET (FP) PO ONE (01:06)
[2021-04-20] MEDS: HEPARIN NA (PORCINE) 5,000 UNITS/ML 1ML VIAL SQ SCH ×2 (05:18→13:11)
[2021-04-20 09:40] LABS: BASO % 0.3 % (0-2.0); EOS % 0.8 % (0-4.5); HEMATOCRIT 32.3 % (32.4-45.2); HEMOGLOBIN 11.2 GM/dL (10.7-15.3); LYMPH % 11.6 % (8-40); MCH 38.6 pg (25.7-33.7); MCHC 34.5 g/dl (32.0-36.0); MEAN CELL VOLUME 111.6 fl (80-96); MEAN PLT VOLUME 11.7 fl (7.5-11.1); MONO % 11.8 % (3.8-10.2); NEUT % 75.5 % (42.8-82.8); PLATELET COUNT 169 10^3/uL (134-434); RBC 2.89 M/mm3 (3.60-5.2); RDW 15.1 % (11.6-15.6); WHITE BLOOD COUNT 10.9 K/mm3 (4.0-10.0)
[2021-04-20] MEDS ORDERED: DEXTROSE 5%-WATER 100 ML IVPB ONE (09:54)
[2021-04-20 09:58] LABS: ALBUMIN 1.5 g/dl (3.4-5.0); BLOOD UREA NITROGEN 57.1 mg/dL (7-18)
[2021-04-20 10:01] LABS: CREATININE 1.5 mg/dL (0.55-1.3); PHOSPHOROUS 2.8 mg/dL (2.5-4.9)
[2021-04-20 10:03] LABS: BILIRUBIN,TOTAL 0.4 mg/dL (0.2-1); TOT PROT 6.4 g/dl (6.4-8.2)
[2021-04-20] MEDS: metoPROLOL SUCCINATE 25 MG TAB.SR.24H (FP) PO SCH (10:09)
[2021-04-20] MEDS: MULTIVITAMINS THER W-MINERALS COMBO TABLET (FP) PO SCH (10:09)
[2021-04-20] MEDS: CEFTRIAXONE 2 GM in DEXTROSE 5%-WATER 2 GM/100 ML BAG IVPB SCH (10:09)
[2021-04-20] MEDS: LACTOBACILLUS ACIDOPHILUS 1 TABLET PO SCH (10:10)
[2021-04-20] MEDS: FOLIC ACID 1 MG TABLET (FP) PO SCH (10:10)
[2021-04-20] MEDS: DEXTROSE 5%-WATER - 1,000 ML IV SCH (12:44)
[2021-04-20] MEDS ORDERED: ENOXAPARIN NA (PORCINE) 40 MG/0.4 ML DISP.SYRIN SQ SCH (14:15)
[2021-04-20 15:07] LABS: FREE KAPPA,SERUM 132.4 mg/L (3.3-19.4)
[2021-04-20] MEDS: ENOXAPARIN NA (PORCINE) 40 MG/0.4 ML DISP.SYRIN SQ SCH (21:08)
[2021-04-20] MEDS: MIRTAZAPINE 15 MG TABLET (FP) PO SCH (21:08)
[2021-04-21] MEDS: DEXTROSE 5%-WATER - 1,000 ML IV SCH ×2 (02:18→12:15)
[2021-04-21] MEDS ORDERED: DEXTROSE 5%-WATER 100 ML IVPB ONE (09:53)
[2021-04-21] MEDS: CEFTRIAXONE 2 GM in DEXTROSE 5%-WATER 2 GM/100 ML BAG IVPB SCH (10:08)
[2021-04-21] MEDS: FOLIC ACID 1 MG TABLET (FP) PO SCH (10:09)
[2021-04-21] MEDS: LACTOBACILLUS ACIDOPHILUS 1 TABLET PO SCH (10:09)
[2021-04-21] MEDS: MULTIVITAMINS THER W-MINERALS COMBO TABLET (FP) PO SCH (10:09)
[2021-04-21] MEDS: metoPROLOL SUCCINATE 25 MG TAB.SR.24H (FP) PO SCH (10:09)
[2021-04-21] MEDS: ENOXAPARIN NA (PORCINE) 40 MG/0.4 ML DISP.SYRIN SQ SCH ×2 (10:09→21:35)
[2021-04-21 10:58] LABS: BASO % 0.6 % (0-2.0); EOS % 2.8 % (0-4.5); HEMATOCRIT 36.3 % (32.4-45.2); HEMOGLOBIN 12.6 GM/dL (10.7-15.3); LYMPH % 14.4 % (8-40); MCH 38.7 pg (25.7-33.7); MCHC 34.6 g/dl (32.0-36.0); MEAN CELL VOLUME 111.9 fl (80-96); MEAN PLT VOLUME 10.9 fl (7.5-11.1); MONO % 9.8 % (3.8-10.2); NEUT % 72.4 % (42.8-82.8); PLATELET COUNT 171 10^3/uL (134-434); RBC 3.25 M/mm3 (3.60-5.2); RDW 15.3 % (11.6-15.6); WHITE BLOOD COUNT 10.8 K/mm3 (4.0-10.0)
[2021-04-21 11:16] LABS: ALBUMIN 1.4 g/dl (3.4-5.0); BLOOD UREA NITROGEN 52.7 mg/dL (7-18); CALCIUM 8.1 mg/dL (8.5-10.1); MAGNESIUM 2.3 mg/dL (1.8-2.4)
[2021-04-21 11:19] LABS: CREATININE 1.6 mg/dL (0.55-1.3); PHOSPHOROUS 3.2 mg/dL (2.5-4.9)
[2021-04-21 11:21] LABS: TOT PROT 6.8 g/dl (6.4-8.2)
[2021-04-21 11:26] LABS: BILIRUBIN,TOTAL 0.4 mg/dL (0.2-1)
[2021-04-21] MEDS: MIRTAZAPINE 15 MG TABLET (FP) PO SCH (21:35)
[2021-04-22] MEDS ORDERED: dilTIAZem HCL 50 MG/10 ML - 10 ML VIAL IVPUSH ONE (04:59)
[2021-04-22 07:40] LABS: BASO % 1.1 % (0-2.0); EOS % 1.1 % (0-4.5); HEMATOCRIT 35.5 % (32.4-45.2); HEMOGLOBIN 11.7 GM/dL (10.7-15.3); LYMPH % 13.2 % (8-40); MCH 36.6 pg (25.7-33.7); MCHC 33.1 g/dl (32.0-36.0); MEAN CELL VOLUME 110.5 fl (80-96); MEAN PLT VOLUME 10.4 fl (7.5-11.1); MONO % 8.2 % (3.8-10.2); NEUT % 76.4 % (42.8-82.8); PLATELET COUNT 233 10^3/uL (134-434); RBC 3.21 M/mm3 (3.60-5.2); RDW 15.2 % (11.6-15.6); WHITE BLOOD COUNT 10.4 K/mm3 (4.0-10.0)
[2021-04-22 07:57] LABS: CALCIUM 7.9 mg/dL (8.5-10.1)
[2021-04-22 07:58] LABS: BLOOD UREA NITROGEN 51.2 mg/dL (7-18); MAGNESIUM 2.3 mg/dL (1.8-2.4)
[2021-04-22 08:00] LABS: CREATININE 1.6 mg/dL (0.55-1.3)
[2021-04-22 08:02] LABS: BILIRUBIN,TOTAL 0.2 mg/dL (0.2-1); TOT PROT 6.5 g/dl (6.4-8.2)
[2021-04-22 08:12] LABS: ALBUMIN 1.6 g/dl (3.4-5.0)
[2021-04-22 08:38] LABS: PLATELET ESTIMATE NORMAL
[2021-04-22] MEDS ORDERED: DEXTROSE 5%-WATER 100 ML IVPB ONE (09:07)
[2021-04-22] MEDS: ENOXAPARIN NA (PORCINE) 40 MG/0.4 ML DISP.SYRIN SQ SCH (09:26)
[2021-04-22] MEDS: CEFTRIAXONE 2 GM in DEXTROSE 5%-WATER 2 GM/100 ML BAG IVPB SCH (09:26)
[2021-04-22] MEDS: FOLIC ACID 1 MG TABLET (FP) PO SCH (09:27)
[2021-04-22] MEDS: MULTIVITAMINS THER W-MINERALS COMBO TABLET (FP) PO SCH (09:27)
[2021-04-22] MEDS: LACTOBACILLUS ACIDOPHILUS 1 TABLET PO SCH (09:27)
[2021-04-22] MEDS: DEXTROSE 5%-WATER - 1,000 ML IV SCH (12:30)
[2021-04-22] MEDS: MIRTAZAPINE 15 MG TABLET (FP) PO SCH (21:23)
[2021-04-22] MEDS: APIXABAN 2.5 MG TABLET PO SCH (21:24)
[2021-04-23] MEDS ORDERED: DEXTROSE 5%-WATER 100 ML IVPB ONE (09:20)
[2021-04-23] MEDS: CEFTRIAXONE 2 GM in DEXTROSE 5%-WATER 2 GM/100 ML BAG IVPB SCH ×2 (10:31→10:35)
[2021-04-23] MEDS: FOLIC ACID 1 MG TABLET (FP) PO SCH (10:33)
[2021-04-23] MEDS: MULTIVITAMINS THER W-MINERALS COMBO TABLET (FP) PO SCH (10:33)
[2021-04-23] MEDS: LACTOBACILLUS ACIDOPHILUS 1 TABLET PO SCH (10:33)
[2021-04-23] MEDS: APIXABAN 2.5 MG TABLET PO SCH ×2 (10:33→21:16)
[2021-04-23] MEDS: DEXTROSE 5%-WATER - 1,000 ML IV SCH (12:30)
[2021-04-23] MEDS: MIRTAZAPINE 15 MG TABLET (FP) PO SCH (21:16)
[2021-04-24 08:03] LABS: BASO % 1.5 % (0-2.0); EOS % 4.2 % (0-4.5); HEMATOCRIT 35.5 % (32.4-45.2); HEMOGLOBIN 11.4 GM/dL (10.7-15.3); LYMPH % 10.3 % (8-40); MCH 34.3 pg (25.7-33.7); MEAN CELL VOLUME 107.1 fl (80-96); MONO % 7.2 % (3.8-10.2); NEUT % 76.8 % (42.8-82.8); PLATELET COUNT 227 10^3/uL (134-434); RBC 3.32 M/mm3 (3.60-5.2); RDW 15.4 % (11.6-15.6); WHITE BLOOD COUNT 11.7 K/mm3 (4.0-10.0)
[2021-04-24 08:29] LABS: BLOOD UREA NITROGEN 37.8 mg/dL (7-18); CALCIUM 7.6 mg/dL (8.5-10.1)
[2021-04-24 08:30] LABS: MAGNESIUM 1.9 mg/dL (1.8-2.4)
[2021-04-24 08:32] LABS: CREATININE 1.3 mg/dL (0.55-1.3); PHOSPHOROUS 3.1 mg/dL (2.5-4.9)
[2021-04-24 09:21] LABS: ANISOCYTOSIS 2+; MACROCYTOSIS 2+; PLATELET ESTIMATE NORMAL
[2021-04-24] MEDS: MULTIVITAMINS THER W-MINERALS COMBO TABLET (FP) PO SCH (09:37)
[2021-04-24] MEDS: APIXABAN 2.5 MG TABLET PO SCH ×2 (09:38→21:23)
[2021-04-24] MEDS: FOLIC ACID 1 MG TABLET (FP) PO SCH (09:38)
[2021-04-24] MEDS: LACTOBACILLUS ACIDOPHILUS 1 TABLET PO SCH (09:38)
[2021-04-24] MEDS: DEXTROSE 5%-WATER - 1,000 ML IV SCH (11:36)
[2021-04-24] MEDS: CEFUROXIME AXETIL 250 MG TABLET PO SCH ×2 (13:37→21:23)
[2021-04-24] MEDS ORDERED: PT OWN MED DRAWER 7, Y5N ONE (19:25)
[2021-04-24] MEDS: MIRTAZAPINE 15 MG TABLET (FP) PO SCH (21:23)
[2021-04-25 07:46] LABS: CALCIUM 7.7 mg/dL (8.5-10.1)
[2021-04-25 07:47] LABS: BLOOD UREA NITROGEN 32.1 mg/dL (7-18)
[2021-04-25 07:50] LABS: CREATININE 1.2 mg/dL (0.55-1.3)
[2021-04-25] MEDS: ACETAMINOPHEN 325 MG TABLET (FP) PO PRN (09:14)
[2021-04-25] MEDS: CEFUROXIME AXETIL 250 MG TABLET PO SCH ×2 (09:14→21:12)
[2021-04-25] MEDS: LACTOBACILLUS ACIDOPHILUS 1 TABLET PO SCH (09:15)
[2021-04-25] MEDS: APIXABAN 2.5 MG TABLET PO SCH ×2 (09:15→21:12)
[2021-04-25] MEDS: FOLIC ACID 1 MG TABLET (FP) PO SCH (09:16)
[2021-04-25] MEDS: MULTIVITAMINS THER W-MINERALS COMBO TABLET (FP) PO SCH (09:16)
[2021-04-25] MEDS ORDERED: ALBUTEROL SO4 2.5/IPRATROPIUM 0.5 INH SOL 3 ML VIAL.NEB. NEB PRN (12:54)
[2021-04-25] MEDS: MIRTAZAPINE 15 MG TABLET (FP) PO SCH (21:12)
[2021-04-26 09:13] LABS: BLOOD UREA NITROGEN 31.4 mg/dL (7-18); CALCIUM 7.7 mg/dL (8.5-10.1)
[2021-04-26 09:17] LABS: CREATININE 1.3 mg/dL (0.55-1.3)
[2021-04-26] MEDS: LACTOBACILLUS ACIDOPHILUS 1 TABLET PO SCH (09:39)
[2021-04-26] MEDS: FOLIC ACID 1 MG TABLET (FP) PO SCH (09:39)
[2021-04-26] MEDS: APIXABAN 2.5 MG TABLET PO SCH ×2 (09:39→21:00)
[2021-04-26] MEDS: ACETAMINOPHEN 325 MG TABLET (FP) PO PRN (09:39)
[2021-04-26] MEDS: MULTIVITAMINS THER W-MINERALS COMBO TABLET (FP) PO SCH (09:39)
[2021-04-26] MEDS: CEFUROXIME AXETIL 250 MG TABLET PO SCH ×2 (09:40→21:00)
[2021-04-26] MEDS: MIRTAZAPINE 15 MG TABLET (FP) PO SCH (21:01)
[2021-04-27 08:20] LABS: BASO % 0.2 % (0-2.0); EOS % 3.7 % (0-4.5); HEMATOCRIT 32.1 % (32.4-45.2); HEMOGLOBIN 10.8 GM/dL (10.7-15.3); LYMPH % 9.4 % (8-40); MCH 38.1 pg (25.7-33.7); MCHC 33.8 g/dl (32.0-36.0); MEAN CELL VOLUME 112.6 fl (80-96); MEAN PLT VOLUME 10.5 fl (7.5-11.1); MONO % 7.9 % (3.8-10.2); NEUT % 78.8 % (42.8-82.8); PLATELET COUNT 251 10^3/uL (134-434); RBC 2.85 M/mm3 (3.60-5.2); RDW 15.1 % (11.6-15.6); WHITE BLOOD COUNT 10.7 K/mm3 (4.0-10.0)
[2021-04-27 08:42] LABS: CALCIUM 7.9 mg/dL (8.5-10.1)
[2021-04-27 08:43] LABS: ALBUMIN 1.6 g/dl (3.4-5.0); BLOOD UREA NITROGEN 31.7 mg/dL (7-18); MAGNESIUM 2.2 mg/dL (1.8-2.4)
[2021-04-27 08:46] LABS: CREATININE 1.3 mg/dL (0.55-1.3)
[2021-04-27 08:47] LABS: BILIRUBIN,TOTAL 0.5 mg/dL (0.2-1)
[2021-04-27 08:48] LABS: TOT PROT 6.5 g/dl (6.4-8.2)
[2021-04-27 09:01] LABS: ANISOCYTOSIS 2+; MACROCYTOSIS 1+; PLATELET ESTIMATE NORMAL
[2021-04-27] MEDS: FOLIC ACID 1 MG TABLET (FP) PO SCH (10:52)
[2021-04-27] MEDS: MULTIVITAMINS THER W-MINERALS COMBO TABLET (FP) PO SCH (10:52)
[2021-04-27] MEDS: APIXABAN 2.5 MG TABLET PO SCH ×2 (10:52→21:17)
[2021-04-27] MEDS: LACTOBACILLUS ACIDOPHILUS 1 TABLET PO SCH (10:52)
[2021-04-27] MEDS: CEFUROXIME AXETIL 250 MG TABLET PO SCH ×2 (10:52→21:16)
[2021-04-27] MEDS: MIRTAZAPINE 15 MG TABLET (FP) PO SCH (21:16)
[2021-04-28 09:07] LABS: CALCIUM 7.8 mg/dL (8.5-10.1)
[2021-04-28 09:08] LABS: BLOOD UREA NITROGEN 34.5 mg/dL (7-18)
[2021-04-28 09:11] LABS: CREATININE 1.4 mg/dL (0.55-1.3); PHOSPHOROUS 3.8 mg/dL (2.5-4.9)
[2021-04-28] MEDS: CEFUROXIME AXETIL 250 MG TABLET PO SCH ×2 (10:02→21:33)
[2021-04-28] MEDS: LACTOBACILLUS ACIDOPHILUS 1 TABLET PO SCH (10:02)
[2021-04-28] MEDS: MULTIVITAMINS THER W-MINERALS COMBO TABLET (FP) PO SCH (10:02)
[2021-04-28] MEDS: APIXABAN 2.5 MG TABLET PO SCH ×2 (10:03→21:33)
[2021-04-28] MEDS: FOLIC ACID 1 MG TABLET (FP) PO SCH (10:03)
[2021-04-28] MEDS: MIRTAZAPINE 15 MG TABLET (FP) PO SCH (21:33)
[2021-04-29 09:06] LABS: CALCIUM 7.7 mg/dL (8.5-10.1)
[2021-04-29 09:07] LABS: BLOOD UREA NITROGEN 38.2 mg/dL (7-18)
[2021-04-29 09:10] LABS: CREATININE 1.4 mg/dL (0.55-1.3)
[2021-04-29 09:46] VITALS: BP 120/76; PULSE 78; TEMP 97.8
[2021-04-29] MEDS: CEFUROXIME AXETIL 250 MG TABLET PO SCH (09:49)
[2021-04-29] MEDS: APIXABAN 2.5 MG TABLET PO SCH (09:49)
[2021-04-29] MEDS: FOLIC ACID 1 MG TABLET (FP) PO SCH (09:49)
[2021-04-29] MEDS: MULTIVITAMINS THER W-MINERALS COMBO TABLET (FP) PO SCH (09:59)
[2021-04-29] MEDS: LACTOBACILLUS ACIDOPHILUS 1 TABLET PO SCH (09:59)
== END 2021-04-29 15:24 | DRG 853 ==
LOC: JER 16:20 → JERBED 19:44 → J4S 04-10 17:19 → OBSVTOIN 04-13 10:16
PROVIDERS: ADMIT Internal Medicine; ATTEND Family Medicine
PROC: 0TJ98ZZ Inspection of Ureter, Via Natural or Artificial Opening Endoscopic (ICD-10-PCS; principal; 2021-04-15 07:30)
PROC: 0T788DZ Dilation of Bilateral Ureters with Intraluminal Device, Via Natural or Artificial Opening Endoscopic (ICD-10-PCS; 2021-04-15 07:30)
PROC: BT14ZZZ Fluoroscopy of Kidneys, Ureters and Bladder (ICD-10-PCS; 2021-04-15 07:30)
DX: A41.50 Gram-negative sepsis, unspecified (principal); N17.0 Acute kidney failure with tubular necrosis; Q22.5 Ebstein's anomaly; E43 Unspecified severe protein-calorie malnutrition; I13.0 Hypertensive heart and chronic kidney disease with heart failure and stage 1 through stage 4 chronic kidney disease, or unspecified chronic kidney disease; I50.32 Chronic diastolic (congestive) heart failure; Z68.1 Body mass index [BMI] 19.9 or less, adult; E87.1 Hypo-osmolality and hyponatremia; J98.11 Atelectasis; N13.6 Pyonephrosis; Q21.1 Atrial septal defect; E87.0 Hyperosmolality and hypernatremia; I48.19 Other persistent atrial fibrillation; R50.9 Fever, unspecified; I95.1 Orthostatic hypotension; N18.30 Chronic kidney disease, stage 3 unspecified; M06.9 Rheumatoid arthritis, unspecified; I07.1 Rheumatic tricuspid insufficiency; I27.20 Pulmonary hypertension, unspecified; I95.9 Hypotension, unspecified; R62.7 Adult failure to thrive; R53.83 Other fatigue; E87.5 Hyperkalemia; E86.1 Hypovolemia; D72.829 Elevated white blood cell count, unspecified; I45.10 Unspecified right bundle-branch block; B95.2 Enterococcus as the cause of diseases classified elsewhere; I25.119 Atherosclerotic heart disease of native coronary artery with unspecified angina pectoris; R80.9 Proteinuria, unspecified; Z86.2 Personal history of diseases of the blood and blood-forming organs and certain disorders involving the immune mechanism
CPT/HCPCS: 36415; 70450-TC; 71045-TC-FY; 74176-TC; 76000-TC-FY; 76775-TC; 76856-TC; 80048; 80053; 81003; 82550; 82570; 82784; 82962; 83605; 83735; 83880; 83883; 84100; 84132; 84155; 84156; 84165; 84300; 84443; 84484; 84540; 84550; 85025; 85032; 85610; 85730; 87040; 87086; 87186; 87324; 87449; 87804; 93005; 93010; 93306-TC; 93880-TC; 94760; 94761; 97116-GP; 97162-GP; 99285-25; C9803-CS; G0378; J1644; U0003; U0005

== ENCOUNTER 2021-08-09 04:51 | Day surgery (SDC) | payer OTHER, MEDICARE ==
[2021-07-22 12:42] VITALS: BMI 21.9
[2021-08-09] MEDS ORDERED: BUPIVACAINE HCL/PF 0.5% (5MG/ML) 10 ML VIAL ONE (14:04)
[2021-08-09] MEDS ORDERED: MIDAZOLAM HCL 2 MG/2 ML SINGLE DOSE VIAL ONE (14:05)
[2021-08-09] MEDS ORDERED: SODIUM CHLORIDE 0.9% P/F 10 ML VIAL IJ ONE (14:32)
[2021-08-09] MEDS ORDERED: ceFAZolin SODIUM 1 GM VIAL ONE (14:32)
[2021-08-09] MEDS ORDERED: IOHEXOL 300 MG/ML INFUS..BTL IV ONE (14:45)
[2021-08-09] MEDS ORDERED: ONDANSETRON 4 MG/2 ML VIAL IVPUSH PRN (15:14)
[2021-08-09] MEDS ORDERED: PROMETHAZINE HCL 25 MG/1 ML VIAL IVPUSH PRN (15:14)
[2021-08-09] MEDS ORDERED: LACTATED RINGERS SOLUTION 1,000 ML IV SCH (15:15)
[2021-08-10 11:41] VITALS: BP 135/87; PULSE 100; TEMP 98.4
== END 2021-08-10 13:19 | disposition home or self-care (01) ==
LOC: JASU-SURG 04:51 → JASUSAT 04:51 → J8W 20:36 → JASUSAT 08-10 13:19
PROVIDERS: ATTEND Urology
PROC: 0T9880Z Drainage of Bilateral Ureters with Drainage Device, Via Natural or Artificial Opening Endoscopic (ICD-10-PCS; principal; 2021-08-09 12:30)
PROC: BT14YZZ Fluoroscopy of Kidneys, Ureters and Bladder using Other Contrast (ICD-10-PCS; 2021-08-09 12:30)
DX: N13.1 Hydronephrosis with ureteral stricture, not elsewhere classified (principal)
CPT/HCPCS: 88300-TC; 94760